=== PATIENT | male | born 1970 | race Caucasian/White ===

== ENCOUNTER → 2018-01-22 | Outpatient (CLI) | payer OTHER ==
[2018-01-22 09:58] LABS: ALANINE AMINOTRANSFERASE 38 U/L (21-72); ALBUMIN 4.1 g/dL (3.5-5.0); ALKALINE PHOSPHATASE 106 U/L (38-126); ANION GAP 10 (5-19); ASPARTATE AMINO TRANSFERASE 18 U/L (17-59); BILIRUBIN,DIRECT 0.3 mg/dL (0.0-0.4); BILIRUBIN,TOTAL 0.7 mg/dL (0.2-1.3); BLOOD UREA NITROGEN 23 mg/dL (7-20); CALCIUM 9.4 mg/dL (8.4-10.2); CARBON DIOXIDE 28 mmol/L (22-30); CHLORIDE 104 mmol/L (98-107); CHOLESTEROL 177.88 mg/dL (0-200); GLUCOSE 169 mg/dL (75-110); POTASSIUM 4.7 mmol/L (3.6-5.0); SODIUM 142.3 mmol/L (137-145); TRIGLYCERIDES 203 mg/dL (<150)
[2018-01-22 10:08] LABS: DIRECT LDL 109 mg/dL (<100)
[2018-01-22 10:12] LABS: VLDL CHOLESTEROL 40.6 mg/dL (10-31)
[2018-01-22 10:13] LABS: FREE T3 3.99 pg/mL (2.77-5.27); FREE T4 (FREE THYROXINE) 0.85 ng/dL (0.78-2.19)
[2018-01-22 10:26] LABS: THYROID STIMULATING HORMONE 1.92 uIU/mL (0.47-4.68)
== END ==
LOC: CCC 08:46
DX: E11.9 Type 2 diabetes mellitus without complications (principal)
CPT/HCPCS: 36415; 80053; 80061; 83036; 84439; 84443; 84481

== ENCOUNTER 2018-06-22 13:27 | Emergency (ER) | payer SELFPAY ==
[2018-06-22] MEDS ORDERED: ASPIRIN 81 MG TABLET, CHEWABLE PO ONE (15:34)
--- NOTE | 2018-06-22 15:39 | ER Document Report ---
ED Medical Screen (RME) - General Chief Complaint: Palpitations Stated Complaint: CHEST PAIN Time Seen by Provider: 06/22/18 15:34 Mode of Arrival: Ambulatory Information source: Patient, [facility] Records Notes: 47-year-old male with anxiety, bipolar, chronic palpitations presents with complaint of heart palpitations and jaw pain. Palpitations have been ongoing for 1 week with worsening over the last day. Patient associated jaw pain began yesterday. Patient reports a stress test and tilt table test performed 3 years ago in [place] which were normal. Reports worsening of sensation after eating certain foods. I have greeted and performed a rapid initial assessment of this patient. A comprehensive ED assessment and evaluation of the patient, analysis of test results and completion of medical decision making process we will be contacted by additional ED providers. PHYSICAL EXAMINATION: Vital signs reviewed-tachycardic, afebrile GENERAL: Well-appearing, well-nourished and in no acute distress. LUNGS: No respiratory distress Musculoskeletal: Normal range of motion NEUROLOGICAL: Normal speech, normal gait. PSYCH: Normal mood, normal affect. SKIN: Warm, Dry, normal turgor, no rashes or lesions noted. TRAVEL OUTSIDE OF THE [place] IN LAST 30 DAYS: No - HPI Onset: Other Onset/Duration: Intermittent, Persistent Quality of pain: Achy - Achy jaw pain Severity: Mild Associated Symptoms: denies: Diarrhea, Nausea, Shortness of breath Exacerbated by: Food Relieved by: Denies Similar symptoms previously: Yes Recently seen / treated by doctor: No - Related Data Smoking: Cigarettes Frequency of alcohol use: None Drug Abuse: None Allergies/Adverse Reactions: No Known Allergies Allergy (Unverified 06/22/18 13:29) Past Medical History Renal/ Medical History: Denies: Hx Peritoneal Dialysis Physical Exam - Vital signs Vitals: Temp Pulse Resp BP Pulse Ox 98.9 F 125 H 16 154/85 H 97 06/22/18 13:32 06/22/18 13:32 06/22/18 13:32 06/22/18 13:32 06/22/18 13:32 Course - Vital Signs Vital signs: Temp Pulse Resp BP Pulse Ox 98.9 F 125 H 16 154/85 H 97 06/22/18 13:32 06/22/18 13:32 06/22/18 13:32 06/22/18 13:32 06/22/18 13:32 Doctor's Discharge - Discharge Referrals: [facility] [Primary Care Provider] - Follow up as needed
[2018-06-22 16:13] LABS: ABSOLUTE BASOPHILS # (AUTO) 0.1 10^3/uL (0.0-0.2); ABSOLUTE LYMPHOCYTES (AUTO) 2.2 10^3/uL (0.5-4.7); ABSOLUTE MONOCYTES (AUTO) 0.6 10^3/uL (0.1-1.4); ABSOLUTE NEUT (AUTO) 5.3 10^3/uL (1.7-8.2); BASOPHILS % (AUTO) 0.6 % (0-2); EOSINOPHILS % (AUTO) 0.5 % (0-6); HEMATOCRIT 40.6 % (37.9-51.0); HEMOGLOBIN 14.5 g/dL (13.5-17.0); LYMPHOCYTES % (AUTO) 26.9 % (13-45); MEAN CORPUSCULAR HEMOGLOBIN 30.9 pg (27.0-33.4); MEAN CORPUSCULAR HGB CONC 35.7 g/dL (32.0-36.0); MEAN CORPUSCULAR VOLUME 87 fl (80-97); MONOCYTES % (AUTO) 7.3 % (3-13); PLATELET COUNT 201 10^3/uL (150-450); RED BLOOD COUNT 4.69 10^6/uL (4.35-5.55); RED CELL DISTRIBUTION WIDTH 12.9 % (11.5-14.0); SEGMENTED NEUTROPHILS % (AUTO) 64.7 % (42-78); TOTAL CELLS COUNTED % (AUTO) 100 %; WHITE BLOOD COUNT 8.3 10^3/uL (4.0-10.5)
--- NOTE | 2018-06-22 16:33 | RADIOLOGY REPORT (SQ) ---
EXAM DESCRIPTION: CHEST 2 VIEWS COMPLETED DATE/TIME: 06/22/2018 4:19 pm REASON FOR STUDY: Palpitations COMPARISON: None. EXAM PARAMETERS: NUMBER OF VIEWS: two views TECHNIQUE: Digital Frontal and Lateral radiographic views of the chest acquired. RADIATION DOSE: NA LIMITATIONS: none FINDINGS: LUNGS AND PLEURA: No opacities, masses or pneumothorax. No pleural effusion. MEDIASTINUM AND HILAR STRUCTURES: No masses or contour abnormalities. HEART AND VASCULAR STRUCTURES: Heart normal size. No evidence for failure. BONES: No acute findings. HARDWARE: Clips right upper quadrant post cholecystectomy OTHER: No other significant finding. IMPRESSION: NO ACUTE RADIOGRAPHIC FINDING IN THE CHEST. TECHNICAL DOCUMENTATION: JOB ID: [id number] [employer]- All Rights Reserved Reading location - IP/workstation name: [email or web address]
[2018-06-22 16:37] LABS: ALANINE AMINOTRANSFERASE 32 U/L (21-72); ALBUMIN 4.4 g/dL (3.5-5.0); ALKALINE PHOSPHATASE 88 U/L (38-126); ANION GAP 7 (5-19); ASPARTATE AMINO TRANSFERASE 31 U/L (17-59); BILIRUBIN,DIRECT 0.4 mg/dL (0.0-0.4); BILIRUBIN,TOTAL 0.7 mg/dL (0.2-1.3); BLOOD UREA NITROGEN 19 mg/dL (7-20); CALCIUM 9.3 mg/dL (8.4-10.2); CARBON DIOXIDE 30 mmol/L (22-30); CHLORIDE 103 mmol/L (98-107); CREATINE KINASE 83 U/L (55-170); GLUCOSE 253 mg/dL (75-110); POTASSIUM 4.7 mmol/L (3.6-5.0); SODIUM 139.6 mmol/L (137-145); TOTAL PROTEIN 7.5 g/dL (6.3-8.2)
[2018-06-22 16:48] LABS: CREATINE KINASE MB 0.85 ng/mL (<4.55); TROPONIN I < 0.012 ng/mL
[2018-06-22 18:50] LABS: APPEARANCE,URINE SLIGHTLY-CLOUDY; BILIRUBIN,URINE NEGATIVE (NEGATIVE); COLOR,URINE YELLOW; GLUCOSE, URINE 150 mg/dL (NEGATIVE); KETONES,URINE TRACE mg/dL (NEGATIVE); LEUKOCYTE ESTERASE,URINE NEGATIVE (NEGATIVE); NITRITE,URINE NEGATIVE (NEGATIVE); PROTEIN,URINE NEGATIVE (NEGATIVE); URINE SPECIFIC GRAVITY 1.026
--- NOTE | 2018-06-22 18:56 | EKG REPORT ---
SEVERITY:- OTHERWISE NORMAL ECG - SINUS TACHYCARDIA : Confirmed by: Jamarcus Davis MD 22-Jun-2018 18:55:43
[2018-06-22] MEDS ORDERED: HYDROXYZINE PAMOATE 25 MG CAPSULE PO ONE (20:57)
--- NOTE | 2018-06-22 21:01 | ER Document Report ---
ED General - General Chief Complaint: Palpitations Stated Complaint: CHEST PAIN Time Seen by Provider: 06/22/18 15:34 Mode of Arrival: Ambulatory TRAVEL OUTSIDE OF THE [place] IN LAST 30 DAYS: No - HPI Patient complains to provider of: Palpitations Notes: Patient coming in for evaluation of palpitations. Patient was evaluated by doctor and RME note is provided below 47-year-old male with anxiety, bipolar, chronic palpitations presents with complaint of heart palpitations and jaw pain. Palpitations have been ongoing for 1 week with worsening over the last day. Patient associated jaw pain began yesterday. Patient reports a stress test and tilt table test performed 3 years ago in [place] which were normal. Reports worsening of sensation after eating certain foods. Upon my evaluation patient states palpitations and jaw pain ongoing since yesterday. Patient states dropping started whenever he open his jaw very wide and yawning. Patient denies any trauma. Patient states that he was having palpitations have intermittent palpitations ongoing for a long time patient states negative cardiac workups in the past. Patient states he does have underlying anxiety and was on medication in the past for anxiety however at this time does not have any insurance and also does not have any medical care therefore is not taking any medications. Patient also associates palpitations with certain foods such as eating at a pizza restaurant however states no issues eating similar food at home. Patient denies ever having EGD or colonoscopy. Patient otherwise resting healthy upon my evaluation. - Related Data Allergies/Adverse Reactions: No Known Allergies Allergy (Verified 06/22/18 18:34) Past Medical History - General Information source: Patient, [facility] Records - Social History Smoking Status: Current Every Day Smoker Frequency of alcohol use: None Drug Abuse: None Family History: Reviewed & Not Pertinent Patient has suicidal ideation: No Patient has homicidal ideation: No Renal/ Medical History: Denies: Hx Peritoneal Dialysis Review of Systems - Review of Systems Constitutional: No symptoms reported EENT: No symptoms reported Cardiovascular: Palpitations Respiratory: No symptoms reported Gastrointestinal: No symptoms reported Genitourinary: No symptoms reported Male Genitourinary: No symptoms reported Musculoskeletal: No symptoms reported Skin: No symptoms reported Hematologic/Lymphatic: No symptoms reported Neurological/Psychological: No symptoms reported -: Yes All other systems reviewed and negative Physical Exam - Vital signs Vitals: Temp Pulse Resp BP Pulse Ox 98.9 F 125 H 16 154/85 H 97 12/17/18 13:32 06/22/18 13:32 06/22/18 13:32 06/22/18 13:32 06/22/18 13:32 Interpretation: Normal - General General appearance: Appears well, Alert - HEENT Head: Normocephalic, Atraumatic Eyes: Normal Pupils: PERRL - Respiratory Respiratory status: No respiratory distress Chest status: Nontender Breath sounds: Normal Chest palpation: Normal - Cardiovascular Rhythm: Regular Heart sounds: Normal auscultation Murmur: No - Abdominal Inspection: Normal Distension: No distension Bowel sounds: Normal Tenderness: Nontender Organomegaly: No organomegaly - Back Back: Normal, Nontender - Extremities General upper extremity: Normal inspection, Nontender, Normal color, Normal ROM , Normal temperature General lower extremity: Normal inspection, Nontender, Normal color, Normal ROM , Normal temperature, Normal weight bearing. No: Juan's sign - Neurological Neuro grossly intact: Yes Cognition: Normal Orientation: AAOx4 [place] Coma Scale Eye Opening: Spontaneous April Coma Scale Verbal: Oriented April Coma Scale Motor: Obeys Commands April Coma Scale Total: 15 Speech: Normal Motor strength normal: LUE, RUE, LLE, RLE Sensory: Normal - Psychological Associated symptoms: Normal affect, Normal mood - Skin Skin Temperature: Warm Skin Moisture: Dry Skin Color: Normal Course - Re-evaluation Re-evalutation: 06/22/18 23:54 The patient has palpitations as the patient's chest pain is not suggestive of pulmonary embolus, cardiac ischemia, aortic dissection, or other serious etiology. Given the extremely low risk of these diagnoses further testing and evaluation for these possibilities does not appear to be indicated at this time. The patient has been instructed to return if the symptoms worsen or change in any way. More likely etiology of patient's issues possibly anxiety related. Did recommend patient follow-up with a talend developer. Also recommend start the patient on a low dose of Vistaril. Patient stated understanding was grateful for his care and agrees with plan patient was discharged home. - Vital Signs Vital signs: Temp Pulse Resp BP Pulse Ox 98.6 F 125 H 20 124/79 97 06/22/18 21:01 06/22/18 13:32 06/22/18 21:01 06/22/18 21:01 06/22/18 21:01 - Laboratory Result Diagrams: 06/22/18 16:04 06/22/18 16:04 Laboratory results interpreted by me: 06/22/18 06/22/18 06/22/18 16:04 16:04 18:30 Glucose 253 H Hemoglobin A1c % 7.7 H Urine Glucose (UA) 150 H Urine Ketones TRACE H Urine Urobilinogen 2.0 H Discharge - Discharge Clinical Impression: Palpitations Condition: Good Disposition: HOME, SELF-CARE Instructions: Anxiety ([facility]), Palpitations (Irregular or Rapid Heartrate) ([facility]) Additional Instructions: Your evaluation today does not show any signs of critical pathology no signs of blood clots infection no signs of cardiac ischemia. Some of your palpitations may be related to possible underlying anxiety. I recommend taking the Vistaril as prescribed. I would recommend following up with your primary care physician and talend developer listed Dr. Jarrett. Return to ER symptoms worsen I would avoid stimulants such as coffee caffeine in excess Prescriptions: Hydroxyzine Pamoate [Vistaril 25 mg Capsule] 25 mg PO QHS #30 capsule Forms: Return to Work Referrals: [facility] [Primary Care Provider] - Follow up in 3-5 days STEPHANE JARRETT MD [ACTIVE STAFF] - Follow up as needed
[2018-06-22 21:20] VITALS: BP 124/79
== END 2018-06-22 21:20 | disposition home or self-care (01) ==
LOC: ER 13:27
DX: R00.2 Palpitations (principal); R68.84 Jaw pain; R07.9 Chest pain, unspecified; F17.200 Nicotine dependence, unspecified, uncomplicated
CPT/HCPCS: 36415; 71046; 80053; 81001; 82550; 82553; 83036; 83735; 84484; 85025; 85379; 93005; 93010; 99285

== ENCOUNTER 2018-07-25 18:22 | Emergency (ER) | payer SELFPAY ==
--- NOTE | 2018-07-25 19:11 | ER Document Report ---
ED Medical Screen (RME) - General Chief Complaint: Dizziness Stated Complaint: psych Time Seen by Provider: 07/25/18 19:06 Notes: Patient says he is thinking about suicide. He went to work today and got a text message from his fiance saying that she was breaking it off with him. All of his stuff that was at her house was piled outside of the house and he has now retrieved it. He has no place to go, no fianc, and does not have any money. 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 He said he contemplated taking a couple of steps into the cater[place] of traffic to commit suicide. Patient has a history of bipolar disorder, anxiety, and panic attacks. Non- insulin diabetic. TRAVEL OUTSIDE OF THE [place] IN LAST 30 DAYS: No - Related Data Allergies/Adverse Reactions: No Known Allergies Allergy (Verified 07/25/18 18:24) Past Medical History - Social History Chew tobacco use (# tins/day): No Frequency of alcohol use: None Drug Abuse: None Endocrine Medical History: Reports: Hx Diabetes Mellitus Type 2 Renal/ Medical History: Denies: Hx Peritoneal Dialysis Psychiatric Medical History: Reports: Hx Bipolar Disorder Past Surgical History: Reports: Hx Cholecystectomy Physical Exam - Vital signs Vitals: Temp Pulse Resp BP Pulse Ox 98.7 F 132 H 20 126/80 H 96 07/25/18 18:30 07/25/18 18:30 07/25/18 18:30 07/25/18 18:30 07/25/18 18:30 Course - Vital Signs Vital signs: Temp Pulse Resp BP Pulse Ox 98.7 F 132 H 20 126/80 H 96 07/25/18 18:30 07/25/18 18:30 07/25/18 18:30 07/25/18 18:30 07/25/18 18:30 Doctor's Discharge - Discharge Referrals: [facility] [Primary Care Provider] - Follow up as needed
[2018-07-25 19:41] LABS: ABSOLUTE BASOPHILS # (AUTO) 0.1 10^3/uL (0.0-0.2); ABSOLUTE LYMPHOCYTES (AUTO) 1.8 10^3/uL (0.5-4.7); ABSOLUTE NEUT (AUTO) 13.2 10^3/uL (1.7-8.2); BASOPHILS % (AUTO) 0.4 % (0-2); EOSINOPHILS % (AUTO) 0.2 % (0-6); HEMATOCRIT 44.1 % (37.9-51.0); HEMOGLOBIN 15.7 g/dL (13.5-17.0); MEAN CORPUSCULAR HEMOGLOBIN 31.2 pg (27.0-33.4); MEAN CORPUSCULAR HGB CONC 35.6 g/dL (32.0-36.0); MEAN CORPUSCULAR VOLUME 88 fl (80-97); MONOCYTES % (AUTO) 6.2 % (3-13); PLATELET COUNT 224 10^3/uL (150-450); RED BLOOD COUNT 5.02 10^6/uL (4.35-5.55); RED CELL DISTRIBUTION WIDTH 13.5 % (11.5-14.0); SEGMENTED NEUTROPHILS % (AUTO) 82.2 % (42-78); TOTAL CELLS COUNTED % (AUTO) 100 %; WHITE BLOOD COUNT 16.1 10^3/uL (4.0-10.5)
[2018-07-25 19:45] LABS: APPEARANCE,URINE SLIGHTLY-CLOUDY; BILIRUBIN,URINE NEGATIVE (NEGATIVE); COLOR,URINE DARK YELLOW; GLUCOSE, URINE NEGATIVE (NEGATIVE); KETONES,URINE TRACE mg/dL (NEGATIVE); LEUKOCYTE ESTERASE,URINE TRACE (NEGATIVE); NITRITE,URINE NEGATIVE (NEGATIVE); PROTEIN,URINE 30 mg/dL (NEGATIVE); URINE SPECIFIC GRAVITY 1.019; UROBILINOGEN,URINE NEGATIVE mg/dL (<2.0)
[2018-07-25 19:55] LABS: ALANINE AMINOTRANSFERASE 47 U/L (21-72); ALBUMIN 5.3 g/dL (3.5-5.0); ALKALINE PHOSPHATASE 94 U/L (38-126); ANION GAP 12 (5-19); ASPARTATE AMINO TRANSFERASE 29 U/L (17-59); BILIRUBIN,DIRECT 0.3 mg/dL (0.0-0.4); BILIRUBIN,TOTAL 1.1 mg/dL (0.2-1.3); BLOOD UREA NITROGEN 19 mg/dL (7-20); CALCIUM 10.3 mg/dL (8.4-10.2); CARBON DIOXIDE 29 mmol/L (22-30); CHLORIDE 103 mmol/L (98-107); GLUCOSE 144 mg/dL (75-110); POTASSIUM 4.2 mmol/L (3.6-5.0); SODIUM 143.8 mmol/L (137-145); TOTAL PROTEIN 8.4 g/dL (6.3-8.2)
[2018-07-25 19:56] LABS: ACETAMINOPHEN < 10 ug/mL (10-30); ALCOHOL < 10 mg/dL (NONE DETECTED); SALICYLATE < 1.0 mg/dL (2.0-20.0)
[2018-07-25 20:01] LABS: URINE AMPHETAMINES SCREEN NEGATIVE; URINE BARBITURATES SCREEN NEGATIVE; URINE BENZODIAZEPINES SCREEN NEGATIVE; URINE COCAINE SCREEN NEGATIVE; URINE MARIJUANA (THC) SCREEN NEGATIVE; URINE METHADONE SCREEN NEGATIVE; URINE PHENCYCLIDINE SCREEN NEGATIVE
[2018-07-25 20:20] LABS: FREE T4 (FREE THYROXINE) 1.14 ng/dL (0.78-2.19)
[2018-07-25 20:34] LABS: THYROID STIMULATING HORMONE 1.67 uIU/mL (0.47-4.68)
[2018-07-25] MEDS ORDERED: METFORMIN HCL 500 MG TABLET PO ONE (20:38)
--- NOTE | 2018-07-25 21:05 | ER Document Report ---
Addendum entered and electronically signed by SUKHI GOSS LPC 07/26/18 09:35: Discharge - Discharge Clinical Impression: Psychosocial stressors, Suicidal ideation Condition: Stable Disposition: HOME, SELF-CARE Additional Instructions: You have been evaluated and assessed by both medical and behavioral health staff during your emergency department visit. You have been cleared of acute medical and psychiatric needs. It is felt psychosocial stresses (relationship distress with intimate partner, homelessness, financial strain, and lack of employment) and not having your diabetic medication/food resulted in crisis. You stated you have already been working with [employer] in obtaining a one way bus ticket to [place] (where you previously resided just over a year ago) or [place] (where you said your cousin resides). You will be linked with [facility] at discharge from the emergency department where they can continue to assist with social needs. 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 While symptoms may be vague, they often include disturbance of sleep, fatigue, loss of appetite, and general loss of interest in life. While depression may be a side effect of drugs, or a reaction to a major change in your life, many cases have no known cause. If depression is acute, and related to a major loss in your life, you can expect it to clear completely with time. If you have been depressed a long time, are prone to repeated bouts of depression or low mood, or have been thinking of suicide, get help. Depression can be treated with anti-depressant medication and counselling. Long-term depression will often take a few weeks to clear, even with appropriate medication. Follow-up care is important. SUICIDAL IDEATION: Suicidal ideation is a common medical term for thoughts about suicide, which may be as detailed as a formulated plan, without the suicidal act itself. Although most people who undergo suicidal ideation do not commit suicide, some go on to make suicide attempts. The range of suicidal ideation varies greatly from fleeting to detailed planning, role playing, and unsuccessful attempts. While thoughts about suicide are common, most people do not carry out serious actions to commit suicide. Based upon your evaluation and discussion with you, we do not believe you are currently at risk to act upon your thoughts of suicide. You have agreed to return to the Emergency Department, at any time, if you feel inclined to act upon your suicidal thoughts. FOLLOW-UP CARE: You are being linked with [facility] since they have been working with you the past few days. They can assist with getting you the one way bus ticket to [place] or [place]. You have been provided with the [facility] information for possible temporary living. While you remain in this area you should continue follow up with [facility] for medical needs and re-establish services with [facility] for behavioral health. If you experience worsening or a significant change in your symptoms, notify the physician immediately or return to the Emergency Department at any time for re- evaluation. Referrals: [facility] [Primary [facility] Provider] - Follow up as needed [facility] [Provider Group] - Follow up as needed [facility] [Outside] - 07/26/18 Original Note: ED Psych Disorder / Suicide - General TRAVEL OUTSIDE OF THE U.S. IN LAST 30 DAYS: No <CLAYTON RAMIREZ - Last Filed: 07/26/18 06:24> <SUKHI GOSS - Last Filed: 07/26/18 09:10> <VALENTINO STUBBS - Last Filed: 07/26/18 10:00> - General Chief Complaint: Psych Problem Stated Complaint: psych Time Seen by Provider: 07/25/18 19:06 Notes: E providers note: Patient says he is thinking about suicide. He went to work today and got a text message from his fiance saying that she was breaking it off with him. All of his stuff that was at her house was piled outside of the house and he has now retrieved it. He has no place to go, no fianc, and does not have any money. 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 He said he contemplated taking a couple of steps into the caterina of traffic to commit suicide. Patient has a history of bipolar disorder, anxiety, and panic attacks. Non- insulin diabetic. My HPI: Upon my examination of the patient he states that he moved to this area about a year ago. Moved away from [place] for his fiance. States he left his job he left his house he left all of his friends for this fianc and is very upset at this point in time that his fiance told him that "it was over." When asked directly if the patient wanted to commit suicide he states "I could not say for sure." Discussed what was said in triage and documented by the RME provider. Patient states "oh yeah does not everybody think about walking into traffic at one time or another?" Patient is currently denying all complaints. Denying lightheadedness, dizziness, headache, abdominal pain, nausea, vomiting, diarrhea. Patient is requesting to smoke a cigarette. Past medical history: Bipolar, anxiety, diabetes Medications: Metformin, Januvia Allergies: None Patient admits to cigarette smoking, denies illicit drug use, denies EtOH use (CLAYTON RAMIREZ) - Related Data Allergies/Adverse Reactions: No Known Allergies Allergy (Verified 07/25/18 18:24) Past Medical History - General Information source: Patient - Social History Smoking Status: Current Every Day Smoker Chew tobacco use (# tins/day): No Frequency of alcohol use: None Drug Abuse: None Family History: Reviewed & Not Pertinent Patient has suicidal ideation: Yes - doesnt feel safe Patient has homicidal ideation: No Endocrine Medical History: Reports: Hx Diabetes Mellitus Type 2 Renal/ Medical History: Denies: Hx Peritoneal Dialysis Psychiatric Medical History: Reports: Hx Bipolar Disorder Past Surgical History: Reports: Hx Cholecystectomy <CLAYTON RAMIREZ - Last Filed: 07/26/18 06:24> Review of Systems - Review of Systems Constitutional: No symptoms reported EENT: No symptoms reported Cardiovascular: No symptoms reported Respiratory: No symptoms reported Gastrointestinal: No symptoms reported Genitourinary: No symptoms reported Male Genitourinary: No symptoms reported Musculoskeletal: No symptoms reported Skin: No symptoms reported Hematologic/Lymphatic: No symptoms reported Neurological/Psychological: See HPI <CLAYTON RAMIREZ - Last Filed: 07/26/18 06:24> Physical Exam <CLAYTON RAMIREZ - Last Filed: 07/26/18 06:24> - Vital signs Vitals: Temp Pulse Resp BP Pulse Ox 98.7 F 132 H 20 126/80 H 96 07/25/18 18:30 07/25/18 18:30 07/25/18 18:30 07/25/18 18:30 07/25/18 18:30 - Notes Notes: GENERAL: Alert, interacts well. No acute distress. HEAD: Normocephalic, atraumatic. EYES: Pupils equal, round, and reactive to light. Extraocular movements intact. ENT: Oral mucosa moist, tongue midline. NECK: Full range of motion. Supple. Trachea midline. LUNGS: Clear to auscultation bilaterally, no wheezes, rales, or rhonchi. No re spiratory distress. HEART: Regular rate and rhythm. No murmur ABDOMEN: Soft, non-tender. Non-distended. Bowel sounds present in all 4 quadrants. EXTREMITIES: Moves all 4 extremities spontaneously. No edema, normal radial and dorsalis pedis pulses bilaterally. No cyanosis. BACK: no cervical, thoracic, lumbar midline tenderness. No saddle anesthesia, normal distal neurovascular exam. NEUROLOGICAL: Alert and oriented x3. Normal speech. cranial nerves II through XII grossly intact PSYCH: Normal affect, normal mood. SKIN: Warm, dry, normal turgor. No rashes or lesions noted. (CLAYTON RAMIREZ) Course - Laboratory Result Diagrams: 07/25/18 19:25 07/25/18 19:25 <CLAYTON RAMIREZ - Last Filed: 07/26/18 06:24> - Laboratory Result Diagrams: 07/25/18 19:25 07/25/18 19:25 <VALENTINO STUBBS - Last Filed: 07/26/18 10:00> - Re-evaluation Re-evalutation: 07/25/18 21:01 Patient's labs do show leukocytosis of 16.1, no signs of anemia, no sign of electrolyte abnormalities, no signs of urinary tract infection. Patient's urine drug screen is negative. Patient's EKG shows a heart rate of 111, and his tachycardia with a QTC of 413, no ST segment elevations or depressions noted. Patient's initial complaints documented by nursing staff states that he was having stomach pains. Patient is denying any abdominal pain at this time. Patient does ask if he can smoke a cigarette. I discussed he was not able to leave the emergency department but I would be happy to give him a NicoDerm patch. Patient is refusing NicoDerm patch at this time. At this time patient is medically cleared for psych evaluation. IVC paperwork has been filled out by myself, signed by my attending Dr. Rivera. 07/26/18 06:24 Patient was without complaints overnight. Sleeping comfortably. Patient care and report was transferred to [facility] for continued care and awaiting psych evaluation. (CLAYTON RAMIREZ) - Vital Signs Vital signs: Temp Pulse Resp BP Pulse Ox 98.3 F 85 20 133/73 H 100 07/26/18 04:55 07/26/18 04:55 07/26/18 04:55 07/26/18 04:55 07/26/18 04:55 - Laboratory Laboratory results interpreted by me: 07/25/18 07/25/18 07/25/18 19:25 19:25 19:25 WBC 16.1 H Seg Neutrophils % 82.2 H Lymphocytes % 11.0 L Absolute Neutrophils 13.2 H Creatinine 1.31 H Est GFR (Non-Af Amer) 58 L Glucose 144 H Calcium 10.3 H Total Protein 8.4 H Albumin 5.3 H Urine Protein 30 H Urine Ketones TRACE H Ur Leukocyte Esterase TRACE H Salicylates < 1.0 L Acetaminophen < 10 L Discharge <CLAYTON RAMIREZ - Last Filed: 07/26/18 06:24> <SUKHI GOSS - Last Filed: 07/26/18 09:10> <VALENTINO STUBBS - Last Filed: 07/26/18 10:00> - Discharge Clinical Impression: Psychosocial stressors, Suicidal ideation Condition: Stable Disposition: HOME, SELF-CARE Additional Instructions: You have been evaluated and assessed by both medical and behavioral health staff during your emergency department visit. You have been cleared of acute medical and psychiatric needs. It is felt psychosocial stresses (relationship distress with intimate partner, homelessness, financial strain, and lack of employment) and not having your diabetic medication/food resulted in crisis. You stated you have already been working with [facility] in obtaining a one way bus ticket to [place] (where you previously resided just over a year ago) or [place] (where you said your cousin resides). You will be linked with [facility] at discharge from the emergency department where they can continue to assist with social needs. 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 While symptoms may be vague, they often include disturbance of sleep, fatigue, loss of appetite, and general loss of interest in life. While depression may be a side effect of drugs, or a reaction to a major change in your life, many cases have no known cause. If depression is acute, and related to a major loss in your life, you can expect it to clear completely with time. If you have been depressed a long time, are prone to repeated bouts of depression or low mood, or have been thinking of suicide, get help. Depression can be treated with anti-depressant medication and counselling. Long-term depression will often take a few weeks to clear, even with appropriate medication. Follow-up care is important. SUICIDAL IDEATION: Suicidal ideation is a common medical term for thoughts about suicide, which may be as detailed as a formulated plan, without the suicidal act itself. Although most people who undergo suicidal ideation do not commit suicide, some go on to make suicide attempts. The range of suicidal ideation varies greatly from fleeting to detailed planning, role playing, and unsuccessful attempts. While thoughts about suicide are common, most people do not carry out serious actions to commit suicide. Based upon your evaluation and discussion with you, we do not believe you are currently at risk to act upon your thoughts of suicide. You have agreed to return to the Emergency Department, at any time, if you feel inclined to act upon your suicidal thoughts. FOLLOW-UP CARE: You are being linked with [facility] crisis since they have been working with you the past few days. They can assist with getting you the one way bus ticket to [place] or [place]. You have been provided with the [facility] information for possible temporary living. While you remain in this area you should continue follow up with [facility] for medical needs and re-establish services with [facility] for behavioral health. If you experience worsening or a significant change in your symptoms, notify the physician immediately or return to the Emergency Department at any time for re-evaluation. Referrals: [facility] [Provider Group] - Follow up as needed [facility] [Outside] - 07/26/18 [facility] [[facility] - Follow up as needed
[2018-07-26] MEDS ORDERED: METFORMIN HCL 500 MG TABLET PO ONE (09:59)
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
[2018-07-26 12:12] VITALS: BP 117/80
--- NOTE | 2018-07-26 23:50 | EKG REPORT ---
SEVERITY:- OTHERWISE NORMAL ECG - SINUS TACHYCARDIA : Confirmed by: Td Fernandez 26-Jul-2018 23:48:18
== END 2018-07-26 12:13 | disposition home or self-care (01) ==
LOC: ER 18:22
DX: R45.851 Suicidal ideations (principal); F31.9 Bipolar disorder, unspecified; F41.9 Anxiety disorder, unspecified; D72.829 Elevated white blood cell count, unspecified; R00.0 Tachycardia, unspecified; Z63.0 Problems in relationship with spouse or partner; Z59.0 Homelessness; Z59.8 Other problems related to housing and economic circumstances; E11.9 Type 2 diabetes mellitus without complications; Z79.84 Long term (current) use of oral hypoglycemic drugs; F17.210 Nicotine dependence, cigarettes, uncomplicated
CPT/HCPCS: 36415; 80053; 80307; 81001; 84439; 84443; 85025; 93005; 93010; 99285

== ENCOUNTER 2018-09-30 12:54 | Emergency (ER) | payer SELFPAY ==
[2018-09-30 12:59] VITALS: BP 180/96
== END 2018-09-30 14:30 | disposition left against medical advice (07) ==
LOC: ER 12:54
DX: Z53.21 Procedure and treatment not carried out due to patient leaving prior to being seen by health care provider (principal)

== ENCOUNTER → 2018-10-08 | Outpatient (CLI) | payer OTHER ==
[2018-10-08 08:49] LABS: ABSOLUTE BASOPHILS # (AUTO) 0.1 10^3/uL (0.0-0.2); ABSOLUTE EOSINOPHILS # (AUTO) 0.2 10^3/uL (0.0-0.6); ABSOLUTE LYMPHOCYTES (AUTO) 1.7 10^3/uL (0.5-4.7); ABSOLUTE MONOCYTES (AUTO) 0.6 10^3/uL (0.1-1.4); ABSOLUTE NEUT (AUTO) 4.2 10^3/uL (1.7-8.2); BASOPHILS % (AUTO) 0.9 % (0-2); EOSINOPHILS % (AUTO) 2.9 % (0-6); HEMATOCRIT 40.4 % (37.9-51.0); HEMOGLOBIN 14.4 g/dL (13.5-17.0); MEAN CORPUSCULAR HEMOGLOBIN 31.8 pg (27.0-33.4); MEAN CORPUSCULAR HGB CONC 35.7 g/dL (32.0-36.0); MEAN CORPUSCULAR VOLUME 89 fl (80-97); MONOCYTES % (AUTO) 8.3 % (3-13); PLATELET COUNT 202 10^3/uL (150-450); RED BLOOD COUNT 4.53 10^6/uL (4.35-5.55); RED CELL DISTRIBUTION WIDTH 13.6 % (11.5-14.0); SEGMENTED NEUTROPHILS % (AUTO) 62.9 % (42-78); TOTAL CELLS COUNTED % (AUTO) 100 %; WHITE BLOOD COUNT 6.7 10^3/uL (4.0-10.5)
[2018-10-08 09:43] LABS: ALANINE AMINOTRANSFERASE 27 U/L (21-72); ALBUMIN 4.1 g/dL (3.5-5.0); ALKALINE PHOSPHATASE 146 U/L (38-126); ANION GAP 7 (5-19); ASPARTATE AMINO TRANSFERASE 20 U/L (17-59); BILIRUBIN,DIRECT 0.3 mg/dL (0.0-0.4); BILIRUBIN,TOTAL 0.5 mg/dL (0.2-1.3); BLOOD UREA NITROGEN 20 mg/dL (7-20); CALCIUM 9.6 mg/dL (8.4-10.2); CARBON DIOXIDE 27 mmol/L (22-30); CHLORIDE 107 mmol/L (98-107); GLUCOSE 205 mg/dL (75-110); POTASSIUM 4.1 mmol/L (3.6-5.0); SODIUM 140.8 mmol/L (137-145); TOTAL PROTEIN 7.2 g/dL (6.3-8.2); TRIGLYCERIDES 209 mg/dL (<150)
[2018-10-08 09:54] LABS: DIRECT LDL 115 mg/dL (<100)
[2018-10-08 09:56] LABS: VLDL CHOLESTEROL 41.8 mg/dL (10-31)
== END ==
LOC: CCC 07:37
DX: E11.8 Type 2 diabetes mellitus with unspecified complications (principal)
CPT/HCPCS: 36415; 80053; 80061; 83036; 83735; 84443; 85025

== ENCOUNTER 2019-03-15 15:24 | Emergency (ER) | payer SELFPAY ==
--- NOTE | 2019-03-15 17:12 | ER Document Report ---
ED Medical Screen (RME) - General Chief Complaint: High Blood Pressure Stated Complaint: BLOOD PRESSURE ISSUE Time Seen by Provider: 03/15/19 17:09 Primary Care Provider: [facility] [Primary Care Provider] - Follow up as needed Mode of Arrival: Ambulatory Information source: Patient Notes: 48-year-old male presented to the ED today for elevated blood pressure and elevated sugar. He is a diabetic but does not have a history of high blood pressure. He states his blood pressure was one 160/110 at home. It is not that high now. He states his blood sugars usually run in the 200s and today it was 317. Patient states he has been dizzy lightheaded and headaches. Patient is alert oriented respirations regular and unlabored speaking in full sentences. I have greeted and performed a rapid initial assessment of this patient. A comprehensive ED assessment and evaluation of the patient, analysis of test results and completion of medical decision making process will be conducted by an additional ED providers. Blood pressure and TRAVEL OUTSIDE OF THE U.S. IN LAST 30 DAYS: No - Related Data Allergies/Adverse Reactions: No Known Allergies Allergy (Verified 03/15/19 15:24) Past Medical History Endocrine Medical History: Reports: Hx Diabetes Mellitus Type 2 Renal/ Medical History: Denies: Hx Peritoneal Dialysis Psychiatric Medical History: Reports: Hx Bipolar Disorder Past Surgical History: Reports: Hx Cholecystectomy Physical Exam - Vital signs Vitals: Temp Pulse Resp BP Pulse Ox 98.6 F 83 18 147/83 H 97 03/15/19 15:44 03/15/19 15:44 03/15/19 15:44 03/15/19 15:44 03/15/19 15:44 Course - Vital Signs Vital signs: Temp Pulse Resp BP Pulse Ox 98.6 F 83 18 147/83 H 97 03/15/19 15:44 03/15/19 15:44 03/15/19 15:44 03/15/19 15:44 03/15/19 15:44 Doctor's Discharge - Discharge Referrals: [facility] [Primary Care Provider] - Follow up as needed
--- NOTE | 2019-03-15 18:19 | RADIOLOGY REPORT (SQ) ---
EXAM DESCRIPTION: CHEST 2 VIEWS COMPLETED DATE/TIME: 03/15/2019 6:02 pm REASON FOR STUDY: dizziness COMPARISON: 06/22/2018 EXAM PARAMETERS: NUMBER OF VIEWS: two views TECHNIQUE: Digital Frontal and Lateral radiographic views of the chest acquired. RADIATION DOSE: NA LIMITATIONS: none FINDINGS: LUNGS AND PLEURA: No opacities, masses or pneumothorax. No pleural effusion. MEDIASTINUM AND HILAR STRUCTURES: No masses or contour abnormalities. HEART AND VASCULAR STRUCTURES: Heart normal size. No evidence for failure. BONES: No acute findings. HARDWARE: None in the chest. OTHER: No other significant finding. IMPRESSION: NO ACUTE RADIOGRAPHIC FINDING IN THE CHEST. TECHNICAL DOCUMENTATION: JOB ID: [id number] [employer]- All Rights Reserved Reading location - IP/workstation name: [email or web address]
[2019-03-15 18:28] LABS: APPEARANCE,URINE CLEAR; BILIRUBIN,URINE NEGATIVE (NEGATIVE); COLOR,URINE YELLOW; GLUCOSE, URINE >=500 mg/dL (NEGATIVE); KETONES,URINE NEGATIVE (NEGATIVE); LEUKOCYTE ESTERASE,URINE NEGATIVE (NEGATIVE); NITRITE,URINE NEGATIVE (NEGATIVE); PROTEIN,URINE NEGATIVE (NEGATIVE); URINE SPECIFIC GRAVITY 1.025
[2019-03-15 18:29] LABS: ABSOLUTE EOSINOPHILS # (AUTO) 0.2 10^3/uL (0.0-0.6); ABSOLUTE LYMPHOCYTES (AUTO) 2.3 10^3/uL (0.5-4.7); ABSOLUTE MONOCYTES (AUTO) 0.6 10^3/uL (0.1-1.4); ABSOLUTE NEUT (AUTO) 5.3 10^3/uL (1.7-8.2); BASOPHILS % (AUTO) 0.4 % (0-2); EOSINOPHILS % (AUTO) 1.9 % (0-6); HEMATOCRIT 41.1 % (37.9-51.0); HEMOGLOBIN 14.2 g/dL (13.5-17.0); LYMPHOCYTES % (AUTO) 27.3 % (13-45); MEAN CORPUSCULAR HEMOGLOBIN 30.6 pg (27.0-33.4); MEAN CORPUSCULAR HGB CONC 34.5 g/dL (32.0-36.0); MEAN CORPUSCULAR VOLUME 89 fl (80-97); MONOCYTES % (AUTO) 7.2 % (3-13); PLATELET COUNT 172 10^3/uL (150-450); RED BLOOD COUNT 4.63 10^6/uL (4.35-5.55); RED CELL DISTRIBUTION WIDTH 13.2 % (11.5-14.0); SEGMENTED NEUTROPHILS % (AUTO) 63.2 % (42-78); TOTAL CELLS COUNTED % (AUTO) 100 %; WHITE BLOOD COUNT 8.5 10^3/uL (4.0-10.5)
[2019-03-15 18:33] LABS: INTERNATIONAL RATION (INR) 1.12; PROTHROMBIN TIME 14.5 SEC (11.4-15.4)
[2019-03-15 18:34] LABS: PARTIAL THROMBOPLASTIN TIME 27.4 SEC (23.5-35.8)
[2019-03-15 18:49] LABS: ALBUMIN 4.3 g/dL (3.5-5.0); ALKALINE PHOSPHATASE 109 U/L (38-126); ANION GAP 10 (5-19); ASPARTATE AMINO TRANSFERASE 31 U/L (17-59); BILIRUBIN,DIRECT 0.2 mg/dL (0.0-0.4); BILIRUBIN,TOTAL 0.5 mg/dL (0.2-1.3); BLOOD UREA NITROGEN 15 mg/dL (7-20); CALCIUM 9.3 mg/dL (8.4-10.2); CARBON DIOXIDE 30 mmol/L (22-30); CHLORIDE 104 mmol/L (98-107); CREATINE KINASE 121 U/L (55-170); GLUCOSE 127 mg/dL (75-110); TOTAL PROTEIN 7.1 g/dL (6.3-8.2)
[2019-03-15 19:01] LABS: CREATINE KINASE MB 1.09 ng/mL (<4.55)
[2019-03-15 19:07] LABS: TROPONIN I < 0.012 ng/mL
[2019-03-15 21:07] VITALS: BP 136/86
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
--- NOTE | 2019-03-16 08:15 | EKG REPORT ---
SEVERITY:- NORMAL ECG - SINUS RHYTHM : Confirmed by: April Ac MD 16-Mar-2019 08:14:33
== END 2019-03-15 21:43 | disposition home or self-care (01) ==
LOC: ER 15:24
DX: I10 Essential (primary) hypertension (principal); R53.81 Other malaise; R42 Dizziness and giddiness; E11.39 Type 2 diabetes mellitus with other diabetic ophthalmic complication; F17.210 Nicotine dependence, cigarettes, uncomplicated; Z90.49 Acquired absence of other specified parts of digestive tract
CPT/HCPCS: 36415; 71046; 80053; 81001; 82550; 82553; 83690; 84484; 85025; 85610; 85730; 93005; 93010; 99284

== ENCOUNTER → 2019-04-01 | Outpatient (CLI) | payer OTHER ==
[2019-04-01 11:36] LABS: ABSOLUTE BASOPHILS # (AUTO) 0.1 10^3/uL (0.0-0.2); ABSOLUTE EOSINOPHILS # (AUTO) 0.2 10^3/uL (0.0-0.6); ABSOLUTE LYMPHOCYTES (AUTO) 2.1 10^3/uL (0.5-4.7); ABSOLUTE MONOCYTES (AUTO) 0.7 10^3/uL (0.1-1.4); ABSOLUTE NEUT (AUTO) 3.9 10^3/uL (1.7-8.2); EOSINOPHILS % (AUTO) 2.2 % (0-6); HEMATOCRIT 41.9 % (37.9-51.0); HEMOGLOBIN 14.7 g/dL (13.5-17.0); LYMPHOCYTES % (AUTO) 29.9 % (13-45); MEAN CORPUSCULAR HEMOGLOBIN 30.5 pg (27.0-33.4); MEAN CORPUSCULAR HGB CONC 35.1 g/dL (32.0-36.0); MEAN CORPUSCULAR VOLUME 87 fl (80-97); MONOCYTES % (AUTO) 9.9 % (3-13); PLATELET COUNT 183 10^3/uL (150-450); RED BLOOD COUNT 4.82 10^6/uL (4.35-5.55); RED CELL DISTRIBUTION WIDTH 13.2 % (11.5-14.0); TOTAL CELLS COUNTED % (AUTO) 100 %; WHITE BLOOD COUNT 6.9 10^3/uL (4.0-10.5)
[2019-04-01 12:03] LABS: ALBUMIN 4.3 g/dL (3.5-5.0); ALKALINE PHOSPHATASE 96 U/L (38-126); ANION GAP 10 (5-19); ASPARTATE AMINO TRANSFERASE 22 U/L (17-59); BILIRUBIN,DIRECT 0.2 mg/dL (0.0-0.4); BILIRUBIN,TOTAL 0.8 mg/dL (0.2-1.3); BLOOD UREA NITROGEN 20 mg/dL (7-20); CALCIUM 9.5 mg/dL (8.4-10.2); CARBON DIOXIDE 27 mmol/L (22-30); CHLORIDE 102 mmol/L (98-107); CHOLESTEROL 180.14 mg/dL (0-200); GLUCOSE 193 mg/dL (75-110); POTASSIUM 4.2 mmol/L (3.6-5.0); TOTAL PROTEIN 7.1 g/dL (6.3-8.2); TRIGLYCERIDES 103 mg/dL (<150)
[2019-04-01 12:13] LABS: DIRECT LDL 147 mg/dL (<100)
== END ==
LOC: CCC 10:41
DX: Z00.00 Encounter for general adult medical examination without abnormal findings (principal)
CPT/HCPCS: 36415; 80053; 80061; 83036; 84443; 85025

== ENCOUNTER → 2019-08-17 | Outpatient (CLI) | payer OTHER ==
[2019-08-17 09:03] LABS: ANION GAP 7 (5-19); BLOOD UREA NITROGEN 17 mg/dL (7-20); CALCIUM 9.3 mg/dL (8.4-10.2); CARBON DIOXIDE 28 mmol/L (22-30); CHLORIDE 106 mmol/L (98-107); GLUCOSE 117 mg/dL (75-110); POTASSIUM 4.1 mmol/L (3.6-5.0)
== END ==
LOC: CCC 07:53
DX: Z00.00 Encounter for general adult medical examination without abnormal findings (principal); E11.8 Type 2 diabetes mellitus with unspecified complications
CPT/HCPCS: 36415; 80048; 83036

== ENCOUNTER → 2019-10-22 | Outpatient (CLI) | payer OTHER ==
[2019-10-22 10:57] LABS: ABSOLUTE BASOPHILS # (AUTO) 0.1 10^3/uL (0.0-0.2); ABSOLUTE EOSINOPHILS # (AUTO) 0.2 10^3/uL (0.0-0.6); ABSOLUTE MONOCYTES (AUTO) 0.6 10^3/uL (0.1-1.4); ABSOLUTE NEUT (AUTO) 3.6 10^3/uL (1.7-8.2); BASOPHILS % (AUTO) 1.1 % (0-2); EOSINOPHILS % (AUTO) 2.8 % (0-6); HEMOGLOBIN 15.7 g/dL (13.5-17.0); LYMPHOCYTES % (AUTO) 30.7 % (13-45); MEAN CORPUSCULAR HEMOGLOBIN 30.9 pg (27.0-33.4); MEAN CORPUSCULAR HGB CONC 35.6 g/dL (32.0-36.0); MEAN CORPUSCULAR VOLUME 87 fl (80-97); MONOCYTES % (AUTO) 9.3 % (3-13); PLATELET COUNT 186 10^3/uL (150-450); RED BLOOD COUNT 5.07 10^6/uL (4.35-5.55); RED CELL DISTRIBUTION WIDTH 13.5 % (11.5-14.0); SEGMENTED NEUTROPHILS % (AUTO) 56.1 % (42-78); TOTAL CELLS COUNTED % (AUTO) 100 %; WHITE BLOOD COUNT 6.4 10^3/uL (4.0-10.5)
[2019-10-22 11:04] LABS: APPEARANCE,URINE CLEAR; BILIRUBIN,URINE NEGATIVE (NEGATIVE); COLOR,URINE YELLOW; GLUCOSE, URINE 50 mg/dL (NEGATIVE); KETONES,URINE NEGATIVE (NEGATIVE); LEUKOCYTE ESTERASE,URINE NEGATIVE (NEGATIVE); NITRITE,URINE NEGATIVE (NEGATIVE); PROTEIN,URINE NEGATIVE (NEGATIVE); URINE SPECIFIC GRAVITY 1.029
[2019-10-22 11:18] LABS: ALBUMIN 4.2 g/dL (3.5-5.0); ALKALINE PHOSPHATASE 107 U/L (38-126); ANION GAP 7 (5-19); ASPARTATE AMINO TRANSFERASE 19 U/L (17-59); BILIRUBIN,TOTAL 0.6 mg/dL (0.2-1.3); BLOOD UREA NITROGEN 22 mg/dL (7-20); CALCIUM 9.2 mg/dL (8.4-10.2); CARBON DIOXIDE 28 mmol/L (22-30); CHLORIDE 101 mmol/L (98-107); CHOLESTEROL 167.63 mg/dL (0-200); GLUCOSE 231 mg/dL (75-110); POTASSIUM 4.3 mmol/L (3.6-5.0); TOTAL PROTEIN 6.9 g/dL (6.3-8.2); TRIGLYCERIDES 215 mg/dL (<150); URIC ACID 4.5 mg/dL (3.5-8.5)
[2019-10-22 11:29] LABS: DIRECT LDL 116 mg/dL (<100)
[2019-10-23 05:37] LABS: CREATININE URINE 240.1 mg/dL (Not Estab.); MICROALBUMIN URINE 5.8 ug/mL (Not Estab.)
== END ==
LOC: CCC 10:24
PROVIDERS: ATTEND Family Medicine
DX: E11.9 Type 2 diabetes mellitus without complications (principal)
CPT/HCPCS: 36415; 80053; 80061; 81001; 82043; 82570; 84550; 85025

== ENCOUNTER 2020-01-20 13:46 | Emergency (ER) | payer SELFPAY ==
[2020-01-20 15:31] VITALS: BP 138/72
[2020-01-20] MEDS ORDERED: IBUPROFEN 600 MG TABLET PO ONE (16:18)
--- NOTE | 2020-01-20 16:19 | ER Document Report ---
ED Fever - General Chief Complaint: Fever Stated Complaint: FEVER Time Seen by Provider: 01/20/20 15:43 Mode of Arrival: Ambulatory Information source: Patient Notes: 49-year-old male past medical history significant for diabetes and bipolar presents to the emergency room complaining of swollen glands that started on Friday that have since resolved. Denies sore throat. States he started with a fever of 101.9 on Friday. General body aches. Has been taking Tylenol with some relief. Last dose at 5:30 AM. He denies any recent travel. He denies any COVID-19 exposure. Denies a sore throat at this time. Does complain of a cough that started yesterday. Denies any other ill contacts. TRAVEL OUTSIDE OF THE [place] IN LAST 30 DAYS: No - Related Data Allergies/Adverse Reactions: No Known Allergies Allergy (Verified 03/15/19 15:24) Past Medical History - General Information source: Patient - Social History Smoking Status: Former Smoker Frequency of alcohol use: None Drug Abuse: None Family History: Reviewed & Not Pertinent Patient has homicidal ideation: No Endocrine Medical History: Reports: Hx Diabetes Mellitus Type 2 Renal/ Medical History: Denies: Hx Peritoneal Dialysis Psychiatric Medical History: Reports: Hx Bipolar Disorder Past Surgical History: Reports: Hx Cholecystectomy Review of Systems - Review of Systems Constitutional: Fever Cardiovascular: No symptoms reported Respiratory: Cough Musculoskeletal: Muscle pain Skin: No symptoms reported Hematologic/Lymphatic: Swollen glands Neurological/Psychological: No symptoms reported -: Yes All other systems reviewed and negative Physical Exam - Vital signs Vitals: Temp Pulse Resp BP Pulse Ox 99.5 F 109 H 20 145/87 H 97 01/20/20 13:52 01/20/20 13:52 01/20/20 13:52 01/20/20 13:52 01/20/20 13:52 - Notes Notes: VITAL SIGNS: Within normal limits. GENERAL: Mild acute distress, non-toxic appearance. HEAD: Normal with no signs of head trauma. EYES: PERRLA, EOMI, conjunctiva normal, no discharge. EARS: Hearing grossly intact. NOSE: Normal. THROAT: Oropharynx is normal. NECK: Normal range of motion, no tenderness, supple, no lymphadenopathy, No adenopathy, no JVD. CHEST: Clear breath sounds bilaterally. No wheezes, rales, or rhonchi. CARDIAC: Tachycardic, normal. S1 and S2, without murmurs, gallops, or rubs. VASCULAR: No Edema. Peripheral pulses normal and equal in all extremities. ABDOMEN: Normal and soft with no tenderness, no masses or pulsatile masses. No organomegaly. Positive bowel sounds x4. No CVA tenderness noted bilaterally. GASTROINTESTINAL: Bowel sounds normal GENITOURINARY: Normal, No tenderness LYMPATHTIC: No lymphadenopathy noted. MUSCULOSKELETAL: Good range of motion of all major joints. Extremities without clubbing, cyanosis or edema. NEUROLOGICAL: Alert and oriented x 3. No focal sensory or strength deficits. Speech normal. Follows commands appropriately. PSYCHIATRIC: Normal Affect, judgement and mood. SKIN: Normal appearance with no rashes or lesions. Course - Re-evaluation Re-evalutation: 01/20/20 18:50 Patient is afebrile, nontoxic-appearing, reviewed lab and x-ray results with patient. Counseled on viral illness, supportive therapy. Offered COVID-19 testing patient refused. He will follow-up with primary care physician if not proving in 2 to 3 days. Patient was given strict return to the emergency room guidelines. Return for any new or worsening symptoms. All questions were answered. Patient verbalized understanding and agrees with plan of care. - Vital Signs Vital signs: Temp Pulse Resp BP Pulse Ox 98.7 F 89 18 138/72 H 98 01/20/20 17:45 01/20/20 15:24 01/20/20 15:24 01/20/20 15:24 01/20/20 15:24 - Diagnostic Test Radiology reviewed: Reports reviewed Discharge - Discharge Clinical Impression: Viral URI with cough Fever Qualifiers: Fever type: unspecified Qualified Code(s): R50.9 - Fever, unspecified Condition: Stable Disposition: HOME, SELF-CARE Instructions: Acetaminophen, Fever ([facility]), Upper Respiratory Illness ([facility]), Viral Syndrome ([facility]) Additional Instructions: Push fluids. Take Tylenol and or Motrin as needed for fevers. Recheck with primary care physician if not improving in 2 to 3 days. Return to the emergency room for any new or worsening symptoms.
--- NOTE | 2020-01-20 17:35 | RADIOLOGY REPORT (SQ) ---
EXAM DESCRIPTION: CHEST SINGLE VIEW IMAGES COMPLETED DATE/TIME: 01/20/2020 4:00 pm REASON FOR STUDY: cough COMPARISON: 03/15/2019 EXAM PARAMETERS: NUMBER OF VIEWS: One view. TECHNIQUE: Single frontal radiographic view of the chest acquired. RADIATION DOSE: NA LIMITATIONS: None. FINDINGS: LUNGS AND PLEURA: No opacities, masses or pneumothorax. No pleural effusion. MEDIASTINUM AND HILAR STRUCTURES: No masses. Contour normal. HEART AND VASCULAR STRUCTURES: Heart normal in size. Normal vasculature. BONES: No acute findings. HARDWARE: None in the chest. OTHER: No other significant finding. IMPRESSION: NO ACUTE RADIOGRAPHIC FINDING IN THE CHEST. TECHNICAL DOCUMENTATION: JOB ID: [id number] 2010 [employer]- All Rights Reserved Reading location - IP/workstation name: [id number]
[2020-01-20 18:15] LABS: A TYPE INFLUENZA AG NEGATIVE (NEGATIVE); B INFLUENZA AG NEGATIVE (NEGATIVE)
== END 2020-01-20 18:55 | disposition home or self-care (01) ==
LOC: ER 13:46
DX: J06.9 Acute upper respiratory infection, unspecified (principal); B97.89 Other viral agents as the cause of diseases classified elsewhere; R05 Cough; R50.9 Fever, unspecified; M79.10 Myalgia, unspecified site; R59.1 Generalized enlarged lymph nodes; E11.9 Type 2 diabetes mellitus without complications; Z87.891 Personal history of nicotine dependence
CPT/HCPCS: 71045; 87804; 99283

== ENCOUNTER 2020-01-26 14:53 | Emergency (ER) | payer SELFPAY ==
[2020-01-26] MEDS ORDERED: ACETAMINOPHEN 325 MG TABLET PO ONE (16:06)
[2020-01-26] MEDS ORDERED: NORMAL SALINE 1000 ML 1,000 ML IV ONE (16:06)
[2020-01-26 16:10] LABS: APPEARANCE,URINE SLIGHTLY-CLOUDY; BILIRUBIN,URINE NEGATIVE (NEGATIVE); COLOR,URINE AMBER; GLUCOSE, URINE >=500 mg/dL (NEGATIVE); KETONES,URINE 20 mg/dL (NEGATIVE); PROTEIN,URINE 30 mg/dL (NEGATIVE); URINE SPECIFIC GRAVITY 1.022
--- NOTE | 2020-01-26 16:14 | ER Document Report ---
ED GI/ - General Chief Complaint: Flank Pain Stated Complaint: FEVER Time Seen by Provider: 01/26/20 15:39 Primary Care Provider: [facility] [Primary Care Provider] - Follow up as needed Notes: HPI: Patient is a 49-year-old male with past medical history as recorded including diabetes and psychiatric disease who presents today stating a fever starting around 5 days ago. He was seen and evaluated here with some cervical lymphadenopathy and a mild nonproductive cough. X-ray showed no pneumonia. Geo brandie was offered COVID testing but refused at that time. Patient denies any and all swollen glands at this time and denies any cough. He denies any runny nose, congestion, sore throat, or shortness of breath. No chest pain or leg swelling. No insect bites or tick bites. No skin lesions or rashes. Patient states he has had for the last 24 hours and bilateral flank pain. No radiation to the abdomen. No abdominal pain. No vomiting or diarrhea. No dysuria. Patient states he did notice his urine was a little "dark". History of kidney stone. ROS: See HPI All other review of systems reviewed and otherwise negative Reviewed vital signs and nursing note as charted by RN. PHYSICAL EXAM: CONSTITUTIONAL: Alert and oriented and responds appropriately to questions. Well-appearing; well-nourished HEAD: Normocephalic; atraumatic EYES: PERRL; Conjunctivae clear, sclerae non-icteric ENT: Normal nose; no rhinorrhea; moist mucous membranes; pharynx without lesions noted NECK: Supple without meningismus; non-tender; no cervical lymphadenopathy, no masses CARD: Regular rate and rhythm; no murmurs; symmetric distal pulses RESP: Normal chest excursion without splinting or tachypnea; breath sounds clear and equal bilaterally; no wheezes, no rhonchi, no rales ABD/GI: Normal bowel sounds; non-distended; soft, non-tender to deep palpation of all 4 quadrants of the abdomen BACK: The back appears normal and is non-tender to palpation along the entire midline spine with no swelling, erythema, fluctuance, or step-offs. Patient has some bilateral CVA tenderness with no swelling or erythema EXT: Normal ROM in all joints; non-tender to palpation; no edema SKIN: No acute lesions noted NEURO: CN 2-12 intact; 5/5 bilateral upper and lower extremity strength with sensation intact to light touch PSYCH: The patient's mood and manner are appropriate. Grooming and personal hygi celestine are appropriate. TRAVEL OUTSIDE OF THE [place] IN LAST 30 DAYS: No - Related Data Allergies/Adverse Reactions: No Known Allergies Allergy (Verified 03/15/19 15:24) Past Medical History - Social History Smoking Status: Current Every Day Smoker Frequency of alcohol use: None Drug Abuse: None Family History: Reviewed & Not Pertinent Patient has homicidal ideation: No Endocrine Medical History: Reports: Hx Diabetes Mellitus Type 2 Renal/ Medical History: Denies: Hx Peritoneal Dialysis Psychiatric Medical History: Reports: Hx Bipolar Disorder Past Surgical History: Reports: Hx Abdominal Surgery - hernia repair, Hx Cholecystectomy Physical Exam - Vital signs Vitals: Temp Pulse Resp BP Pulse Ox 100 F 114 H 18 146/105 H 98 01/26/20 15:13 01/26/20 15:13 01/26/20 15:13 01/26/20 15:13 01/26/20 15:13 Course - Re-evaluation Re-evalutation: Given the history and physical examination we will obtain basic labs, blood cultures, urine analysis, Renal colic CT scan, and reassess. X-ray 5 days ago was unremarkable. Patient denies any cough at this time. No hypoxia present. Patient has no headache, n riaz pain, or rash. I do believe acute bacterial meningitis for this extended period of time with no above symptoms to be unlikely. 01/26/20 18:02 Labs and imaging as recorded. White blood cell count as recorded. Slight transaminitis that was not present previously. Slight splenomegaly. I have added a Monospot test. Patient does not have a gallbladder. No tenderness to the upper or lower abdomen. No obvious signs of infection. Blood cultures have been sent. Fluids and antipyretics have been provided. Patient has accepted the COVID swab at this time. 01/26/20 18:35 Monospot is negative. Patient does have some transaminitis with a low sodium. Patient has no headache and has no rash to the wrists or palms. However it is summertime. Given the above history and physical, blood cultures pending, COVID pending, patient looks well, vital signs stable, I will provide a course of d oxycycline with strict return precautions and follow-up with the primary care physician. - Vital Signs Vital signs: Temp Pulse Resp BP Pulse Ox 99.3 F 89 20 145/86 H 98 01/26/20 18:35 01/26/20 18:35 01/26/20 18:35 01/26/20 18:35 01/26/20 18:35 - Laboratory Result Diagrams: 01/26/20 16:50 01/26/20 16:50 Laboratory results interpreted by me: 01/26/20 01/26/20 01/26/20 15:50 16:50 16:50 Hgb 13.4 L Sodium 132.4 L Glucose 280 H AST 69 H ALT 144 H Alkaline Phosphatase 183 H Urine Protein 30 H Urine Glucose (UA) >=500 H Urine Ketones 20 H Urine Blood SMALL H Urine Urobilinogen 2.0 H Discharge - Discharge Clinical Impression: Transaminitis Fever Qualifiers: Fever type: unspecified Qualified Code(s): R50.9 - Fever, unspecified Condition: Good Disposition: HOME, SELF-CARE Additional Instructions: Come back immediately for any headache, rash, change in mental status, persi stent vomiting or diarrhea, cough or shortness of breath, or any other acute problems. Please take the antibiotics as prescribed. Please follow-up with the COVID testing as discussed as well as your primary care physician. Please make sure that you quarantine yourself and to your COVID test has returned. Prescriptions: Doxycycline Hyclate 100 mg PO BID #20 tablet. Referrals: [facility] [Primary Care Provider] - Follow up as needed
--- NOTE | 2020-01-26 16:38 | RADIOLOGY REPORT (SQ) ---
EXAM DESCRIPTION: CT ABD/PELVIS NO ORAL OR IV IMAGES COMPLETED DATE/TIME: 01/26/2020 4:24 pm REASON FOR STUDY: 34; flank pain and fever; h/o stone COMPARISON: None. TECHNIQUE: CT scan of the abdomen and pelvis performed without intravenous or oral contrast. Images reviewed with lung, soft tissue, and bone windows. Reconstructed coronal and sagittal MPR images revi ewed. All images stored on PACS. All CT scanners at this facility use dose modulation, iterative reconstruction, and/or weight based d osing when appropriate to reduce radiation dose to as low as reasonably achievable (ALARA). [facility]: Dose Right [facility]: CareDose [facility]: Dose Right [facility]: Teradose 4D [facility]: Smart [employer] [facility] RADIATION DOSE: CT Rad equipment meets quality standard of care and radiation dose reduction techniq ues were employed. CTDIvol: 9.5 mGy. DLP: 539 mGy-cm.mGy. LIMITATIONS: None. FINDINGS: LOWER CHEST: No significant findings. No nodules or infiltrates. NON-CONTRASTED LIVER, SPLEEN, ADRENALS: Normal liver and adrenal glands. Splenomegaly. PANCREAS: No masses. No peripancreatic inflammatory changes. GALLBLADDER: Surgically absent. RIGHT KIDNEY AND URETER: No suspicious masses. Assessment limited by lack of IV contrast. No signif icant calcifications. No hydronephrosis or hydroureter. LEFT KIDNEY AND URETER: No suspicious masses. Assessment limited by lack of IV contrast. No signifi cant calcifications. No hydronephrosis or hydroureter. AORTA AND RETROPERITONEUM: No aneurysm. No retroperitoneal masses or adenopathy. BOWEL AND PERITONEAL CAVITY: No obvious masses or inflammatory changes. No free fluid. APPENDIX: Normal. PELVIS, BLADDER, AND ABDOMINAL WALL:No abnormal masses. No free fluid. Bladder normal. BONES: No significant findings. OTHER: No other significant finding. IMPRESSION: Splenomegaly. No other significant finding in the abdomen or pelvis. No urinary tract findings. COMMENT: Quality ID # [id number]: Final reports with documentation of one or more dose reduction techniques (e.g., Automated exposure control, adjustment of the mA and/or kV according to patient size, use of iterative reconstruction technique) TECHNICAL DOCUMENTATION: JOB ID: [id number] 2010 [employer]- All Rights Reserved Reading location - IP/workstation name: [email or web address]
[2020-01-26 17:25] LABS: ABSOLUTE LYMPHOCYTES (AUTO) 1.6 10^3/uL (0.5-4.7); ABSOLUTE MONOCYTES (AUTO) 0.6 10^3/uL (0.1-1.4); ABSOLUTE NEUT (AUTO) 2.8 10^3/uL (1.7-8.2); BASOPHILS % (AUTO) 0.5 % (0-2); EOSINOPHILS % (AUTO) 0.6 % (0-6); HEMATOCRIT 38.2 % (37.9-51.0); HEMOGLOBIN 13.4 g/dL (13.5-17.0); LYMPHOCYTES % (AUTO) 31.9 % (13-45); MEAN CORPUSCULAR HGB CONC 35.2 g/dL (32.0-36.0); MEAN CORPUSCULAR VOLUME 85 fl (80-97); MONOCYTES % (AUTO) 11.9 % (3-13); PLATELET COUNT 199 10^3/uL (150-450); RED BLOOD COUNT 4.48 10^6/uL (4.35-5.55); RED CELL DISTRIBUTION WIDTH 13.9 % (11.5-14.0); SEGMENTED NEUTROPHILS % (AUTO) 55.1 % (42-78); TOTAL CELLS COUNTED % (AUTO) 100 %
[2020-01-26 17:46] LABS: ALBUMIN 4.2 g/dL (3.5-5.0); ALKALINE PHOSPHATASE 183 U/L (38-126); ANION GAP 6 (5-19); ASPARTATE AMINO TRANSFERASE 69 U/L (17-59); BILIRUBIN,DIRECT 0.4 mg/dL (0.0-0.4); BILIRUBIN,TOTAL 1.3 mg/dL (0.2-1.3); BLOOD UREA NITROGEN 18 mg/dL (7-20); CALCIUM 8.8 mg/dL (8.4-10.2); CARBON DIOXIDE 28 mmol/L (22-30); CHLORIDE 98 mmol/L (98-107); GLUCOSE 280 mg/dL (75-110); POTASSIUM 4.2 mmol/L (3.6-5.0); TOTAL PROTEIN 7.4 g/dL (6.3-8.2)
[2020-01-26] MEDS ORDERED: MORPHINE SULFATE 10 MG/ML INJ IV ONE (18:01)
[2020-01-26] MEDS ORDERED: IBUPROFEN 600 MG TABLET PO ONE (18:25)
[2020-01-26 18:35] VITALS: BP 145/86
--- NOTE | 2020-01-26 18:35 | RADIOLOGY REPORT (SQ) ---
EXAM DESCRIPTION: . CHEST SINGLE VIEW IMAGES COMPLETED DATE/TIME: 01/26/2020 5:06 pm REASON FOR STUDY: 34; fever COMPARISON: 760 EXAM PARAMETERS: NUMBER OF VIEWS: One view. TECHNIQUE: Single frontal radiographic view of the chest acquired. RADIATION DOSE: NA LIMITATIONS: None. FINDINGS: LUNGS AND PLEURA: Lungs are hyperinflated. No focal consolidation or pleural effusion. N o pneumothorax. MEDIASTINUM AND HILAR STRUCTURES: No masses. Contour normal. HEART AND VASCULAR STRUCTURES: Heart normal in size. Normal vasculature. BONES: No acute findings. HARDWARE: None in the chest. OTHER: No other significant finding. IMPRESSION: No acute cardiopulmonary disease. Hyperinflated lungs which can be seen with obstructiv e lung disease. TECHNICAL DOCUMENTATION: JOB ID: [id number] 2010 [email or web address]- All Rights Reserved Reading location - IP/workstation name: [id number]
[2020-01-26] MEDS ORDERED: DOXYCYCLINE HYCLATE 100 MG TABLET PO ONE (18:36)
== END 2020-01-26 19:41 | disposition home or self-care (01) ==
LOC: ER 14:53
DX: R74.0 Nonspecific elevation of levels of transaminase and lactic acid dehydrogenase [LDH] (principal); R50.9 Fever, unspecified; R10.9 Unspecified abdominal pain; R59.0 Localized enlarged lymph nodes; R05 Cough; F17.200 Nicotine dependence, unspecified, uncomplicated; E11.9 Type 2 diabetes mellitus without complications; Z20.828 Contact with and (suspected) exposure to other viral communicable diseases
CPT/HCPCS: 99284; 96360; 36415; 87040; 85025; 87635; 86308; 80053; 81001; 71045; 74176; J7030; C9803

== ENCOUNTER → 2020-03-10 | Outpatient (CLI) | payer OTHER ==
[2020-03-10 12:10] LABS: ABSOLUTE EOSINOPHILS # (AUTO) 0.1 10^3/uL (0.0-0.6); ABSOLUTE LYMPHOCYTES (AUTO) 2.4 10^3/uL (0.5-4.7); ABSOLUTE MONOCYTES (AUTO) 0.5 10^3/uL (0.1-1.4); ABSOLUTE NEUT (AUTO) 3.1 10^3/uL (1.7-8.2); BASOPHILS % (AUTO) 0.7 % (0-2); EOSINOPHILS % (AUTO) 2.3 % (0-6); HEMATOCRIT 38.6 % (37.9-51.0); HEMOGLOBIN 13.7 g/dL (13.5-17.0); LYMPHOCYTES % (AUTO) 38.6 % (13-45); MEAN CORPUSCULAR HEMOGLOBIN 31.2 pg (27.0-33.4); MEAN CORPUSCULAR HGB CONC 35.5 g/dL (32.0-36.0); MEAN CORPUSCULAR VOLUME 88 fl (80-97); MONOCYTES % (AUTO) 8.6 % (3-13); PLATELET COUNT 154 10^3/uL (150-450); RED CELL DISTRIBUTION WIDTH 14.1 % (11.5-14.0); SEGMENTED NEUTROPHILS % (AUTO) 49.8 % (42-78); TOTAL CELLS COUNTED % (AUTO) 100 %; WHITE BLOOD COUNT 6.3 10^3/uL (4.0-10.5)
[2020-03-10 12:20] LABS: APPEARANCE,URINE CLEAR; BILIRUBIN,URINE NEGATIVE (NEGATIVE); COLOR,URINE YELLOW; GLUCOSE, URINE 50 mg/dL (NEGATIVE); KETONES,URINE NEGATIVE (NEGATIVE); LEUKOCYTE ESTERASE,URINE NEGATIVE (NEGATIVE); NITRITE,URINE NEGATIVE (NEGATIVE); PROTEIN,URINE NEGATIVE (NEGATIVE); UROBILINOGEN,URINE NEGATIVE mg/dL (<2.0)
[2020-03-10 12:47] LABS: ALBUMIN 4.3 g/dL (3.5-5.0); ALKALINE PHOSPHATASE 92 U/L (38-126); AMYLASE 71 U/L (30-110); ANION GAP 8 (5-19); ASPARTATE AMINO TRANSFERASE 25 U/L (17-59); BILIRUBIN,DIRECT 0.4 mg/dL (0.0-0.4); BILIRUBIN,TOTAL 0.7 mg/dL (0.2-1.3); BLOOD UREA NITROGEN 17 mg/dL (7-20); CARBON DIOXIDE 28 mmol/L (22-30); CHLORIDE 105 mmol/L (98-107); CHOLESTEROL 168.02 mg/dL (0-200); GLUCOSE 159 mg/dL (75-110); POTASSIUM 3.9 mmol/L (3.6-5.0); TOTAL PROTEIN 7.2 g/dL (6.3-8.2); TRIGLYCERIDES 169 mg/dL (<150)
[2020-03-10 12:58] LABS: DIRECT LDL 107 mg/dL (<100)
[2020-03-10 13:01] LABS: FREE T4 (FREE THYROXINE) 0.8 ng/dL (0.78-2.19)
[2020-03-10 13:03] LABS: VLDL CHOLESTEROL 33.8 mg/dL (10-31)
[2020-03-10 13:15] LABS: THYROID STIMULATING HORMONE 3.17 uIU/mL (0.47-4.68)
--- NOTE | 2020-03-10 18:20 | RADIOLOGY REPORT (SQ) ---
EXAM DESCRIPTION: MANDIBLE 4 VIEWS OR MORE; C SP 6 OR MORE VIEWS IMAGES COMPLETED DATE/TIME: 03/10/2020 11:58 am REASON FOR STUDY: CERVICAL DISC DENERAGTION; RT TMJ DISORDER; ATYPICAL FACIAL PAIN COMPARISON: None. FINDINGS: Four views mandible: No acute or suspicious bone, joint or soft tissue abnormality. No m andibular fracture. There is some periodontal lucency noted. TMJs are intact although radiographic evaluation is limited. Cervical spine 7 views: No malalignment or abnormal motion. No fracture or bone lesion. Discs are relatively preserved. Lung apices are clear. TECHNICAL DOCUMENTATION: JOB ID: [id number] Reading location - IP/workstation name: [email or web address]
--- NOTE | 2020-03-10 18:20 | RADIOLOGY REPORT (SQ) ---
EXAM DESCRIPTION: MANDIBLE 4 VIEWS OR MORE; C SP 6 OR MORE VIEWS IMAGES COMPLETED DATE/TIME: 03/10/2020 11:58 am REASON FOR STUDY: CERVICAL DISC DENERAGTION; RT TMJ DISORDER; ATYPICAL FACIAL PAIN COMPARISON: None. FINDINGS: Four views mandible: No acute or suspicious bone, joint or soft tissue abnormality. No m andibular fracture. There is some periodontal lucency noted. TMJs are intact although radiographic evaluation is limited. Cervical spine 7 views: No malalignment or abnormal motion. No fracture or bone lesion. Discs are relatively preserved. Lung apices are clear. TECHNICAL DOCUMENTATION: JOB ID: [id number] Reading location - IP/workstation name: [email or web address]
== END ==
LOC: OD 10:56
PROVIDERS: ATTEND Family Medicine
DX: M50.30 Other cervical disc degeneration, unspecified cervical region (principal); M26.601 Right temporomandibular joint disorder, unspecified; G50.1 Atypical facial pain; R51 Headache; R29.898 Other symptoms and signs involving the musculoskeletal system; E11.9 Type 2 diabetes mellitus without complications; E80.7 Disorder of bilirubin metabolism, unspecified
CPT/HCPCS: 36415; 70110; 72052; 80053; 80061; 81001; 82150; 84439; 84443; 85025

== ENCOUNTER 2020-04-07 15:05 | Emergency (ER) | payer OTHER, SELFPAY ==
[2020-04-07] MEDS ORDERED: NORMAL SALINE 1000 ML 1,000 ML IV ONE (16:01)
--- NOTE | 2020-04-07 16:01 | ER Document Report ---
ED Medical Screen (RME) - General Chief Complaint: Blood Pressure Problem Stated Complaint: DIZZYNESS,ELEVATED BLOOD PRESSURE Time Seen by Provider: 04/07/20 15:54 Primary Care Provider: EDWIN SWEENEY [Primary Care Provider] - Follow up as needed Mode of Arrival: Ambulatory Information source: Patient Notes: Patient presents complaining of dizziness off and on since yesterday. Patient reports having chest pressure yesterday with the dizziness. Patient denies any chest pressure today. Patient denies any nausea vomiting or shortness of breath. Patient does complain of feeling fatigued. Patient reports elevated blood pressure and heart rate yesterday. Patient does not have a history of hypertension. Patient does have a history of diabetes. I have greeted and performed a rapid initial assessment of this patient. A comprehensive ED assessment and evaluation of the patient, analysis of test results and completion of the medical decision making process will be conducted by additional ED providers. TRAVEL OUTSIDE OF THE [place] IN LAST 30 DAYS: No - Related Data Allergies/Adverse Reactions: No Known Allergies Allergy (Verified 01/26/20 18:40) Past Medical History Endocrine Medical History: Reports: Hx Diabetes Mellitus Type 2 Renal/ Medical History: Denies: Hx Peritoneal Dialysis Psychiatric Medical History: Reports: Hx Bipolar Disorder Past Surgical History: Reports: Hx Abdominal Surgery - hernia repair, Hx Cholecystectomy Physical Exam - Vital signs Vitals: Temp Pulse Resp BP Pulse Ox 98.4 F 98 16 144/80 H 99 04/07/20 15:25 04/07/20 15:25 04/07/20 15:25 04/07/20 15:25 04/07/20 15:25 - Respiratory Respiratory status: No respiratory distress Breath sounds: Normal - Cardiovascular Rhythm: Regular Heart sounds: S1 appreciated, S2 appreciated Course - Vital Signs Vital signs: Temp Pulse Resp BP Pulse Ox 98.4 F 98 16 144/80 H 99 04/07/20 15:25 04/07/20 15:25 04/07/20 15:25 04/07/20 15:25 04/07/20 15:25 Doctor's Discharge - Discharge Referrals: EDWIN SWEENEY [Primary Care Provider] - Follow up as needed
--- NOTE | 2020-04-07 16:36 | RADIOLOGY REPORT (SQ) ---
EXAM DESCRIPTION: CHEST SINGLE VIEW IMAGES COMPLETED DATE/TIME: 04/07/2020 4:24 pm REASON FOR STUDY: dizzy, cp COMPARISON: 01/26/2020 EXAM PARAMETERS: NUMBER OF VIEWS: One view. TECHNIQUE: Single frontal radiographic view of the chest acquired. RADIATION DOSE: NA LIMITATIONS: None. FINDINGS: LUNGS AND PLEURA: No opacities, masses or pneumothorax. No pleural effusion. MEDIASTINUM AND HILAR STRUCTURES: No masses. Contour normal. HEART AND VASCULAR STRUCTURES: Heart normal in size. Normal vasculature. BONES: No acute findings. HARDWARE: None in the chest. OTHER: No other significant finding. IMPRESSION: NO ACUTE RADIOGRAPHIC FINDING IN THE CHEST. TECHNICAL DOCUMENTATION: JOB ID: [id number] 2010 [employer]- All Rights Reserved Reading location - IP/workstation name: [email or web address]
[2020-04-07 17:18] LABS: ABSOLUTE EOSINOPHILS # (AUTO) 0.1 10^3/uL (0.0-0.6); ABSOLUTE MONOCYTES (AUTO) 0.7 10^3/uL (0.1-1.4); BASOPHILS % (AUTO) 0.4 % (0-2); EOSINOPHILS % (AUTO) 1.1 % (0-6); HEMATOCRIT 41.4 % (37.9-51.0); HEMOGLOBIN 14.7 g/dL (13.5-17.0); LYMPHOCYTES % (AUTO) 20.6 % (13-45); MEAN CORPUSCULAR HEMOGLOBIN 31.4 pg (27.0-33.4); MEAN CORPUSCULAR HGB CONC 35.4 g/dL (32.0-36.0); MEAN CORPUSCULAR VOLUME 89 fl (80-97); MONOCYTES % (AUTO) 6.7 % (3-13); PLATELET COUNT 178 10^3/uL (150-450); RED BLOOD COUNT 4.66 10^6/uL (4.35-5.55); RED CELL DISTRIBUTION WIDTH 13.9 % (11.5-14.0); SEGMENTED NEUTROPHILS % (AUTO) 71.2 % (42-78); TOTAL CELLS COUNTED % (AUTO) 100 %; WHITE BLOOD COUNT 9.8 10^3/uL (4.0-10.5)
[2020-04-07 17:23] LABS: APPEARANCE,URINE SLIGHTLY-CLOUDY; BILIRUBIN,URINE NEGATIVE (NEGATIVE); COLOR,URINE YELLOW; GLUCOSE, URINE >=500 mg/dL (NEGATIVE); KETONES,URINE TRACE mg/dL (NEGATIVE); LEUKOCYTE ESTERASE,URINE NEGATIVE (NEGATIVE); NITRITE,URINE NEGATIVE (NEGATIVE); PROTEIN,URINE 30 mg/dL (NEGATIVE); URINE SPECIFIC GRAVITY 1.025; UROBILINOGEN,URINE NEGATIVE mg/dL (<2.0)
[2020-04-07 17:38] LABS: ALBUMIN 4.5 g/dL (3.5-5.0); ALKALINE PHOSPHATASE 81 U/L (38-126); ANION GAP 7 (5-19); ASPARTATE AMINO TRANSFERASE 25 U/L (17-59); BILIRUBIN,DIRECT 0.3 mg/dL (0.0-0.4); BILIRUBIN,TOTAL 0.7 mg/dL (0.2-1.3); BLOOD UREA NITROGEN 19 mg/dL (7-20); CALCIUM 9.3 mg/dL (8.4-10.2); CARBON DIOXIDE 28 mmol/L (22-30); CHLORIDE 104 mmol/L (98-107); GLUCOSE 221 mg/dL (75-110); NEONATAL BILIRUBIN RESULT 0.4 mg/dL (0.1-1.1); POTASSIUM 4.4 mmol/L (3.6-5.0); TOTAL PROTEIN 7.3 g/dL (6.3-8.2)
--- NOTE | 2020-04-07 17:56 | EKG REPORT ---
SEVERITY:- NORMAL ECG - SINUS RHYTHM : Confirmed by: Jamarcus Davis MD 07-Apr-2020 17:55:00
--- NOTE | 2020-04-07 21:35 | ER Document Report ---
ED General - General Chief Complaint: High Blood Pressure Stated Complaint: DIZZYNESS,ELEVATED BLOOD PRESSURE Time Seen by Provider: 04/07/20 15:54 Primary Care Provider: [facility] [Primary Care Provider] - Follow up in 3-5 days Mode of Arrival: Ambulatory Notes: Patient is a 49-year-old male who presents emergency department with a chief complaint of dizziness. Patient had an episode of dizziness yesterday. States that he was drinking caffeine. Patient states that he is very sensitive to caffeine. Patient also endorses significant stress and his personal life, as his 's ex- is living at his house. Patient states that yesterday he woke up and his and her ex- are missing. He denies any numbness or tingling. Denies any dizziness today. States that he had some slight chest pressure yesterday also. States the chest pressure is not there anymore. TRAVEL OUTSIDE OF THE [place] IN LAST 30 DAYS: No - Related Data Allergies/Adverse Reactions: No Known Allergies Allergy (Verified 04/07/20 19:35) Past Medical History - General Information source: Patient - Social History Smoking Status: Current Every Day Smoker Chew tobacco use (# tins/day): No Frequency of alcohol use: None Drug Abuse: None Family History: Reviewed & Not Pertinent Patient has homicidal ideation: No Endocrine Medical History: Reports: Hx Diabetes Mellitus Type 2 Renal/ Medical History: Denies: Hx Peritoneal Dialysis Psychiatric Medical History: Reports: Hx Bipolar Disorder Past Surgical History: Reports: Hx Abdominal Surgery - hernia repair, Hx Cholecystectomy Review of Systems - Review of Systems Notes: REVIEW OF SYSTEMS: CONSTITUTIONAL : Denies recent illness. Denies recent unintentional weight loss. Denies fever, chills, or sweats. EENT: Denies eye, ear, throat, or mouth pain, discharge, or symptoms. Denies nasal or sinus congestion. CARDIOVASCULAR: See HPI. RESPIRATORY: Denies shortness of breath, cough, congestion, difficulty breathing, or wheezing. GASTROINTESTINAL: Denies nausea, vomiting, and diarrhea. Denies abdominal pain. Denies constipation. GENITOURINARY: Denies difficulty urinating, burning, blood in urine, urgency or frequency. MUSCULOSKELETAL: Denies neck and back pain. Denies joint pain or swelling. SKIN: Denies rash, itchiness, or lesions HEMATOLOGIC : Denies easy bruising or bleeding. LYMPHATIC: Denies swollen, painful, enlarged glands. NEUROLOGICAL: Denies no numbness or tingling denies weakness. Denies headache. Denies altered mental status. Denies alteration in speech. See HPI. PSYCHIATRIC: See HPI. All other systems reviewed and negative. Physical Exam - Vital signs Vitals: Temp Pulse Resp BP Pulse Ox 98.4 F 98 16 144/80 H 99 04/07/20 15:25 04/07/20 15:25 04/07/20 15:25 04/07/20 15:25 04/07/20 15:25 - Notes Notes: PHYSICAL EXAMINATION: GENERAL: Appears well, healthy, well-nourished, no acute distress. HEAD: Normocephalic, atraumatic. EYES: PERRL, conjunctiva normal, all extraocular movements intact, sclera nonicteric ENT: Moist mucous membranes. NECK: Supple, no noticeable swelling, redness, rash. Normal range of motion. LUNGS: Equal breath sounds bilaterally and clear to auscultation. No wheezes rales or rhonchi. CARDIOVASCULAR: S1-S2, regular rate, regular rhythm. Radial pulses 2+, normal. ABDOMEN: Normoactive bowel sounds. Soft, nontender, no guarding, no rebound tenderness, and no masses palpated. EXTREMITIES: Normal strength and range of motion, no pitting or edema. No cyanosis. NEUROLOGICAL: Moves all extremities upon command. Strength 5/5 in all extremities. PSYCH: Normal mood, normal affect. SKIN: Warm, dry. No rash, lesions, ulcerations noted. Normal skin turgor. Course - Re-evaluation Re-evalutation: 04/07/20 Chest x-ray was unremarkable. Hematology is unremarkable. Chemistries show a glucose of 221, which went down to 171 over time. Troponin was unremarkable. TSH is normal. Magnesium is only slightly low. Based off the patient's history of drinking caffeine and having significant stressors of having the patient's 's ex- living with him, I suspect the stressors caused him to have his symptoms. Patient's blood pressure is normal. It has been normal here in the emergency department. Advised him to follow-up with his primary care provider and also follow-up with his mental health provider for follow-up. He is in agreement with this plan. Follow-up precautions were given. Verbal discharge instructions were given to the patient. They verbalized understanding. They are stable for discharge. - Vital Signs Vital signs: Temp Pulse Resp BP Pulse Ox 98.7 F 98 21 H 122/82 100 04/07/20 21:01 04/07/20 15:25 04/07/20 21:01 04/07/20 21:01 04/07/20 21:01 - Laboratory Result Diagrams: 04/07/20 16:50 04/07/20 16:50 Laboratory results interpreted by me: 04/07/20 04/07/20 04/07/20 16:30 16:50 19:53 Glucose 221 H POC Glucose 171 H Magnesium 1.4 L Urine Protein 30 H Urine Glucose (UA) >=500 H Urine Ketones TRACE H Discharge - Discharge Clinical Impression: Dizziness Condition: Stable Disposition: HOME, SELF-CARE Additional Instructions: You were seen today in the emergency department for high blood pressure and dizziness. Your exam, labs and chest x-ray are very reassuring. Your blood pressure was normal here in the emergency department. I highly recommend you keep your appointment with mental health and talk to them about your marriage situation. Follow-up with your regular provider. Referrals: [facility] [Primary Care Provider] - Follow up in 3-5 days
[2020-04-07 21:52] VITALS: BP 122/82
== END 2020-04-07 21:53 | disposition home or self-care (01) ==
LOC: ER 15:05
DX: R42 Dizziness and giddiness (principal); R03.0 Elevated blood-pressure reading, without diagnosis of hypertension; E11.9 Type 2 diabetes mellitus without complications; F17.200 Nicotine dependence, unspecified, uncomplicated
CPT/HCPCS: 36415; 71045; 80053; 81001; 82962; 83735; 84443; 84484; 85025; 93005; 93010; 99285

== ENCOUNTER → 2020-04-17 | Outpatient (CLI) | payer OTHER | LOC: RAD 12:33 | PROVIDERS: ATTEND Family Medicine | DX: J01.90 Acute sinusitis, unspecified (principal) | CPT/HCPCS: 70486 ==

== ENCOUNTER 2020-06-23 10:27 | Emergency (ER) | payer OTHER ==
[2020-06-23 10:45] VITALS: BP 155/92
== END 2020-06-23 11:05 | disposition left against medical advice (07) ==
LOC: ER 10:27
DX: Z53.21 Procedure and treatment not carried out due to patient leaving prior to being seen by health care provider (principal)

== ENCOUNTER 2020-06-23 17:10 | Emergency (ER) | payer OTHER ==
--- NOTE | 2020-06-23 17:39 | ER Document Report ---
ED Medical Screen (RME) - General Chief Complaint: Congestion Stated Complaint: DRY COUGH Time Seen by Provider: 06/23/20 17:34 Primary Care Provider: JOSE DANIEL WOLFE MD [Primary Care Provider] - Follow up as needed Notes: Patient presents complaining of headache and dry cough with chest burning off and on for the past 3 months. Patient had a rapid Covid test today that was positive. Patient became concerned because of his age and his history of diabetes and wanted to get evaluated for his symptoms. I have greeted and performed a rapid initial assessment of this patient. A comprehensive ED assessment and evaluation of the patient, analysis of test results and completion of the medical decision making process will be conducted by additional ED providers. TRAVEL OUTSIDE OF THE [place] IN LAST 30 DAYS: No - Related Data Allergies/Adverse Reactions: No Known Allergies Allergy (Verified 06/23/20 17:34) Past Medical History Endocrine Medical History: Reports: Hx Diabetes Mellitus Type 2 Renal/ Medical History: Denies: Hx Peritoneal Dialysis Psychiatric Medical History: Reports: Hx Bipolar Disorder Past Surgical History: Reports: Hx Abdominal Surgery - hernia repair, Hx Cholecystectomy Physical Exam - Vital signs Vitals: Temp Pulse Resp BP Pulse Ox 99.3 F 93 16 151/81 H 97 06/23/20 17:31 06/23/20 17:31 06/23/20 17:31 06/23/20 17:31 06/23/20 17:31 - General General appearance: Appears well, Alert - Respiratory Respiratory status: No respiratory distress Breath sounds: Normal Course - Vital Signs Vital signs: Temp Pulse Resp BP Pulse Ox 99.3 F 93 16 151/81 H 97 06/23/20 17:31 06/23/20 17:31 06/23/20 17:31 06/23/20 17:31 06/23/20 17:31 Doctor's Discharge - Discharge Referrals: JOSE DANIEL WOLFE MD [Primary Care Provider] - Follow up as needed
[2020-06-23 18:25] LABS: ABSOLUTE LYMPHOCYTES (AUTO) 1.1 10^3/uL (0.5-4.7); ABSOLUTE MONOCYTES (AUTO) 0.7 10^3/uL (0.1-1.4); ABSOLUTE NEUT (AUTO) 3.6 10^3/uL (1.7-8.2); BASOPHILS % (AUTO) 0.6 % (0-2); EOSINOPHILS % (AUTO) 0.4 % (0-6); HEMATOCRIT 43.1 % (37.9-51.0); LYMPHOCYTES % (AUTO) 20.2 % (13-45); MEAN CORPUSCULAR HEMOGLOBIN 30.5 pg (27.0-33.4); MEAN CORPUSCULAR HGB CONC 34.7 g/dL (32.0-36.0); MEAN CORPUSCULAR VOLUME 88 fl (80-97); MONOCYTES % (AUTO) 13.6 % (3-13); PLATELET COUNT 148 10^3/uL (150-450); RED BLOOD COUNT 4.91 10^6/uL (4.35-5.55); SEGMENTED NEUTROPHILS % (AUTO) 65.2 % (42-78); TOTAL CELLS COUNTED % (AUTO) 100 %; WHITE BLOOD COUNT 5.5 10^3/uL (4.0-10.5)
[2020-06-23] MEDS ORDERED: ALBUTEROL SULFATE 0.083% NEB 2.5 MG/3 ML AMPUL NEB ONE (18:30)
--- NOTE | 2020-06-23 18:31 | ER Document Report ---
ED General - General Chief Complaint: Congestion Stated Complaint: DRY COUGH Time Seen by Provider: 06/23/20 17:34 Primary Care Provider: JOSE DANIEL WOLFE MD [Primary Care Provider] - 07/05/20 TRAVEL OUTSIDE OF THE [place] IN LAST 30 DAYS: No - HPI Notes: 49-year-old male with past medical history for diabetes and hypertension to the emergency department with complaints of several weeks of dry cough with chest burning. He states that he had similar symptoms "3 months ago". He states he had a Covid test at that time but he is not sure what the result was. He states that he tried to follow-up with his primary care physician but primary care could not get the records. He states he was given an antibiotic and he felt a lot better after it. He states that the past week or so he started to feel worse. He started to have more cough and body aches. He denies any fevers this time. Denies any loss of smell or taste. He states he went to an urgent care and got a Covid test which was positive. He denies shortness of breath. He states that he has had some difficulty controlling his blood sugar as of late. He has been on VERTILAS and that had been working for him but recently he has been seeing blood sugars in the 200s. Denies any shola chest pain. He states that the chest burning occurs after a cough. He denies any abdominal pain, nausea, vomiting, diarrhea. He is not sure that he has had any positive sick contacts. Apparently he lives in a trailer with his and his 's ex- . - Related Data Allergies/Adverse Reactions: No Known Allergies Allergy (Verified 06/23/20 17:34) Past Medical History - General Information source: Patient - Social History Smoking Status: Current Every Day Smoker Frequency of alcohol use: Occasional Drug Abuse: None Family History: Reviewed & Not Pertinent Endocrine Medical History: Reports: Hx Diabetes Mellitus Type 2 Renal/ Medical History: Denies: Hx Peritoneal Dialysis Psychiatric Medical History: Reports: Hx Bipolar Disorder Past Surgical History: Reports: Hx Abdominal Surgery - hernia repair, Hx Cholecystectomy Review of Systems - Review of Systems Constitutional: Malaise, Other - fatigue. denies: Chills, Fever EENT: denies: Ear pain, Throat pain, Difficulty swallowing, Throat swelling, Mouth pain Cardiovascular: See HPI - chest burning after cough. denies: Palpitations, Dizziness, Lightheaded, Edema Respiratory: Cough. denies: Short of breath, Wheezing Gastrointestinal: denies: Abdominal pain, Diarrhea, Nausea, Vomiting Genitourinary: No symptoms reported Male Genitourinary: No symptoms reported Musculoskeletal: Muscle pain - body aches Skin: No symptoms reported Hematologic/Lymphatic: No symptoms reported Neurological/Psychological: No symptoms reported -: Yes All other systems reviewed and negative Physical Exam - Vital signs Vitals: Temp Pulse Resp BP Pulse Ox 99.3 F 93 16 151/81 H 97 06/23/20 17:31 06/23/20 17:31 06/23/20 17:31 06/23/20 17:31 06/23/20 17:31 Interpretation: Hypertensive - Notes Notes: PHYSICAL EXAMINATION: GENERAL: Well-appearing, well-nourished and in no acute distress. HEAD: Atraumatic, normocephalic. EYES: Pupils equal round and reactive to light, extraocular movements intact, sclera anicteric, conjunctiva are normal. ENT: nares patent, oropharynx clear without exudates. Moist mucous membranes. NECK: Normal range of motion, supple without lymphadenopathy LUNGS: Breath sounds clear to auscultation bilaterally and equal. No wheezes rales or rhonchi. HEART: Regular rate and rhythm without murmurs ABDOMEN: Soft, nontender, normoactive bowel sounds. No guarding, no rebound. No masses appreciated. EXTREMITIES: Normal range of motion, no pitting or edema. No cyanosis. NEUROLOGICAL: No focal neurological deficits. Moves all extremities spontaneously and on command. PSYCH: Normal mood, normal affect. SKIN: Warm, Dry, normal turgor, no rashes or lesions noted. Course - Re-evaluation Re-evalutation: 06/23/20 19:39 Prior to giving insulin for patient's hyperglycemia, we rechecked his glucose and it had decreased down to 288. Will hold insulin. Patient has reassuring labs otherwise. His bicarb is normal and he has no anion gap. His kidney function is reassuring. Chest x-ray is negative. Plan will be to send home with albuterol inhaler as well as Tessalon. Encouraged to return if he has any worsening symptoms. Also encouraged that you must quarantine for at least 10 days while he has COVID-19. Primary care follow-up. Patient agrees with the plan - Vital Signs Vital signs: Temp Pulse Resp BP Pulse Ox 99.3 F 93 16 151/81 H 97 06/23/20 17:31 06/23/20 17:31 06/23/20 17:31 06/23/20 17:31 06/23/20 17:31 - Laboratory Results Result Diagrams: 06/23/20 18:09 06/23/20 18:09 Laboratory Results Interpreted: 06/23/20 06/23/20 06/23/20 18:09 18:09 19:34 Plt Count 148 L [place] % (Auto) 13.6 H Sodium 136.0 L Chloride 95 L Carbon Dioxide 32 H Glucose 327 H POC Glucose 287 H Critical Laboratory Results Reviewed: No Critical Results - Radiology Results Critical Radiology Results Reviewed: No Critical Results - EKG Interpretation by Me Additional EKG results interpreted by me: 06/23/20 Rate 94 Rhythm sinus Interpretation: No STEMI, no ST changes, no T wave inversions, normal axis with no LVH and there is no significant difference from prior on April 07, 2020 Discharge - Discharge Clinical Impression: Hyperglycemia, COVID-19, Cough Condition: Stable Disposition: HOME, SELF-CARE Additional Instructions: Today he tested positive for COVID-19. Please use inhaler as well as cough medicine for symptomatic relief. Monitor your symptoms closely. Please return if you have worsening shortness of breath, chest pain, passing out, any other symptoms. Your blood sugar was 327 today. You were given insulin. Please continue take your Janumet. Follow-up with your primary care in 10 days. You will need to quarantine for 10 days while you have COVID-19. Prescriptions: Benzonatate [Tessalon Perles 100 mg Capsule] 100 mg PO Q8HP PRN #40 capsule PRN Reason: Albuterol Sulfate [Albuterol Sulfate Hfa] 2 puff IH Q4H #1 [id number] Referrals: JOSE DANIEL WOLFE MD [Primary Care Provider] - 07/05/20
[2020-06-23 18:42] LABS: ALBUMIN 4.4 g/dL (3.5-5.0); ALKALINE PHOSPHATASE 95 U/L (38-126); ANION GAP 9 (5-19); ASPARTATE AMINO TRANSFERASE 34 U/L (17-59); BILIRUBIN,DIRECT 0.2 mg/dL (0.0-0.4); BILIRUBIN,TOTAL 0.8 mg/dL (0.2-1.3); BLOOD UREA NITROGEN 16 mg/dL (7-20); CALCIUM 9.5 mg/dL (8.4-10.2); CARBON DIOXIDE 32 mmol/L (22-30); CHLORIDE 95 mmol/L (98-107); GLUCOSE 327 mg/dL (75-110); POTASSIUM 4.2 mmol/L (3.6-5.0); TOTAL PROTEIN 7.4 g/dL (6.3-8.2)
[2020-06-23] MEDS ORDERED: INSULIN REG, HUMAN 100 UNIT/ML 3 ML VIAL (PYX) SUBCUT ONE (18:49)
--- NOTE | 2020-06-23 19:16 | RADIOLOGY REPORT (SQ) ---
EXAM DESCRIPTION: CHEST SINGLE VIEW IMAGES COMPLETED DATE/TIME: 06/23/2020 6:41 pm REASON FOR STUDY: cough, chest discomfort COMPARISON: 04/07/2020 EXAM PARAMETERS: NUMBER OF VIEWS: One view. TECHNIQUE: Single frontal radiographic view of the chest acquired. RADIATION DOSE: NA LIMITATIONS: None. FINDINGS: LUNGS AND PLEURA: No opacities, masses or pneumothorax. No pleural effusion. MEDIASTINUM AND HILAR STRUCTURES: No masses. Contour normal. HEART AND VASCULAR STRUCTURES: Heart normal in size. Normal vasculature. BONES: No acute findings. HARDWARE: None in the chest. OTHER: No other significant finding. IMPRESSION: NO ACUTE RADIOGRAPHIC FINDING IN THE CHEST. TECHNICAL DOCUMENTATION: JOB ID: [id number] 2010 [employer]- All Rights Reserved Reading location - IP/workstation name: [email or web address]
[2020-06-23 20:09] VITALS: BP 141/81
--- NOTE | 2020-06-24 17:23 | EKG REPORT ---
SEVERITY:- NORMAL ECG - SINUS RHYTHM : Confirmed by: April Ac MD 24-Jun-2020 17:22:17
== END 2020-06-23 20:09 | disposition home or self-care (01) ==
LOC: ER 17:10
DX: U07.1 COVID-19 (principal); R05 Cough; E11.9 Type 2 diabetes mellitus without complications; F17.200 Nicotine dependence, unspecified, uncomplicated
CPT/HCPCS: 93005; 94640; 99285; 36415; 82962; 85025; 80053; 84484; 71045; 93010; J7613

== ENCOUNTER 2020-07-10 20:59 | Emergency (ER) | payer OTHER ==
[2020-07-10 21:32] VITALS: BP 153/92
--- NOTE | 2020-07-10 21:42 | ER Document Report ---
ED Medical Screen (RME) - General Chief Complaint: Palpitations Stated Complaint: HEART PALPATATION Primary Care Provider: JOSE DANIEL WOLFE MD [Primary Care Provider] - Follow up as needed TRAVEL OUTSIDE OF THE [place] IN LAST 30 DAYS: No - HPI Notes: 07/10/20 21:38 Rapid Medical Exam HPI: 49-year-old male presents to the ER complaining of palpitations that began today. Patient says he has a history of having intermittent palpitations but today he is having them every 10 to 15 minutes which is much more common than usual. Patient says he has been worked up in the past for this with stress testing, tilt testing, etc. with all negative results. Patient says his roommate and are at home with active Covid. Patient says he had a rapid Covid test on June 23 that was positive and he is mostly been asymptomatic since. No history of ACS. Denies shortness of breath, fevers, abdominal pain, nausea vomiting. Patient does have increased life stressors at home. He also reports that one of his roommates from [employer] recently so he was drinking their leftover Mountain Dew 0 which does have 68 mg of caffeine. He he is unsure if this is more than his usual caffeine intake daily. Physical Exam: GENERAL: Well-appearing, well-nourished and in no acute distress. HEAD: Atraumatic, normocephalic. ENT: Moist mucous membranes. RESP: Respirations even and unlabored CV- Regular rate. NEURO: No focal neurological deficits. Moves all extremities spontaneously and on command. My involvement in this patients care was limited to a rapid initial assessment. A comprehensive ED assessment and evaluation of the patient, analysis of test results, treatment, and completion of the medical decision making process will be performed by other ER providers. - Related Data Allergies/Adverse Reactions: No Known Allergies Allergy (Verified 06/23/20 17:34) Past Medical History Endocrine Medical History: Reports: Hx Diabetes Mellitus Type 2 Renal/ Medical History: Denies: Hx Peritoneal Dialysis Psychiatric Medical History: Reports: Hx Bipolar Disorder Past Surgical History: Reports: Hx Abdominal Surgery - hernia repair, Hx Cholecystectomy Physical Exam - Vital signs Vitals: Temp Pulse BP Pulse Ox 98.1 F 95 153/92 H 99 07/10/20 21:30 07/10/20 21:30 07/10/20 21:30 07/10/20 21:30 Course - Vital Signs Vital signs: Temp Pulse Resp BP Pulse Ox 98.1 F 95 153/92 H 99 07/10/20 21:30 07/10/20 21:30 07/10/20 21:30 07/10/20 21:30 Doctor's Discharge - Discharge Referrals: JOSE DANIEL WOLFE MD [Primary Care Provider] - Follow up as needed
--- NOTE | 2020-07-10 23:08 | RADIOLOGY REPORT (SQ) ---
EXAM DESCRIPTION: Site: CHEST 2 VIEWS RP: XR CHEST 2 VIEWS Views: 2 CLINICAL HISTORY: 49 years Male; heart palpitations; COMPARISON: 06/23/2020 FINDINGS: Lungs: Lungs are clear, with no focal infiltrate, pneumothorax, or pleural effusion. Mediastinum: Mediastinum is within normal limits for this positioning. Bones: Bony structures are unremarkable. Right upper quadrant surgical clips are noted. IMPRESSION: 1. No acute cardiothoracic abnormality.
[2020-07-10 23:45] LABS: ABSOLUTE EOSINOPHILS # (AUTO) 0.1 10^3/uL (0.0-0.6); ABSOLUTE LYMPHOCYTES (AUTO) 2.2 10^3/uL (0.5-4.7); ABSOLUTE MONOCYTES (AUTO) 0.7 10^3/uL (0.1-1.4); ABSOLUTE NEUT (AUTO) 4.7 10^3/uL (1.7-8.2); BASOPHILS % (AUTO) 0.5 % (0-2); EOSINOPHILS % (AUTO) 1.3 % (0-6); HEMATOCRIT 40.2 % (37.9-51.0); HEMOGLOBIN 14.3 g/dL (13.5-17.0); LYMPHOCYTES % (AUTO) 28.7 % (13-45); MEAN CORPUSCULAR HEMOGLOBIN 30.6 pg (27.0-33.4); MEAN CORPUSCULAR HGB CONC 35.6 g/dL (32.0-36.0); MEAN CORPUSCULAR VOLUME 86 fl (80-97); MONOCYTES % (AUTO) 8.7 % (3-13); PLATELET COUNT 210 10^3/uL (150-450); RED BLOOD COUNT 4.66 10^6/uL (4.35-5.55); RED CELL DISTRIBUTION WIDTH 13.1 % (11.5-14.0); SEGMENTED NEUTROPHILS % (AUTO) 60.8 % (42-78); TOTAL CELLS COUNTED % (AUTO) 100 %; WHITE BLOOD COUNT 7.7 10^3/uL (4.0-10.5)
[2020-07-10 23:53] LABS: ALBUMIN 4.2 g/dL (3.5-5.0); ALKALINE PHOSPHATASE 77 U/L (38-126); ANION GAP 6 (5-19); ASPARTATE AMINO TRANSFERASE 39 U/L (17-59); BILIRUBIN,DIRECT 0.2 mg/dL (0.0-0.4); BILIRUBIN,TOTAL 0.7 mg/dL (0.2-1.3); BLOOD UREA NITROGEN 16 mg/dL (7-20); CALCIUM 9.5 mg/dL (8.4-10.2); CARBON DIOXIDE 31 mmol/L (22-30); CHLORIDE 101 mmol/L (98-107); GLUCOSE 273 mg/dL (75-110); POTASSIUM 4.3 mmol/L (3.6-5.0); TOTAL PROTEIN 7.1 g/dL (6.3-8.2)
== END 2020-07-11 03:07 | disposition left against medical advice (07) ==
LOC: ER 20:59
DX: R00.2 Palpitations (principal); E11.9 Type 2 diabetes mellitus without complications; Z63.8 Other specified problems related to primary support group; Z20.822 Contact with and (suspected) exposure to COVID-19; Z53.20 Procedure and treatment not carried out because of patient's decision for unspecified reasons
CPT/HCPCS: 36415; 71046; 80053; 84484; 85025; 99281

== ENCOUNTER 2020-08-02 12:17 | Emergency (ER) | payer OTHER ==
--- NOTE | 2020-08-02 12:48 | ER Document Report ---
ED Medical Screen (RME) - General Chief Complaint: Palpitations Stated Complaint: HEART PALPITATIONS,HEARTBURN Time Seen by Provider: 08/02/20 12:44 Primary Care Provider: JOSE DANIEL WOLFE MD [Primary Care Provider] - Follow up as needed TRAVEL OUTSIDE OF THE [place] IN LAST 30 DAYS: No - HPI Notes: 08/02/20 12:46 49-year-old male presents to ED for evaluation of increasing palpitations over the last several months. Patient reports he has had several bouts in the last few days. Patient reports he feels like he is being hit in the chest. He denies cough or cold symptoms. He was positive for Covid over 1-1/2 months ago. Denies fever or chills. States he also gets burning sensations from the epigastrium up into his throat. Reports it is worse when he lays flat. Patient states he does not feel associated dyspnea. Notes that he had his gallbladder out in 2006. - Related Data Allergies/Adverse Reactions: No Known Allergies Allergy (Verified 06/23/20 17:34) Past Medical History Endocrine Medical History: Reports: Hx Diabetes Mellitus Type 2 Renal/ Medical History: Denies: Hx Peritoneal Dialysis Psychiatric Medical History: Reports: Hx Bipolar Disorder Past Surgical History: Reports: Hx Abdominal Surgery - hernia repair, Hx Cholecystectomy Physical Exam - Vital signs Vitals: Temp Pulse Resp BP Pulse Ox 97.9 F 94 20 174/88 H 100 08/02/20 12:30 08/02/20 12:30 08/02/20 12:30 08/02/20 12:30 08/02/20 12:30 General: No acute distress. Alert and oriented x3. Sitting comfortably in a stretcher. Skin: No jaundice, pallor, petechiae, or rashes. Warm and dry. Heart: Regular rate and rhythm. S1,S2. No murmurs, rubs, or gallops. Lungs: Clear to auscultation bilaterally. No wheezes, rhonchi, rales. Equal ches t expansion. No retractions. Abdomen: Soft, pain with deep palpation of the epigastrum, nondistended. No masses. No CVA tenderness bilaterally. Back: No midline spinal TTP. No paraspinous muscular TTP. Neuro: GCS 15. Moving all extremities without discomfort. Psych: Mood and affect appropriate. 08/02/20 12:05 Course - Vital Signs Vital signs: Temp Pulse Resp BP Pulse Ox 97.9 F 94 20 174/88 H 100 08/02/20 12:30 08/02/20 12:30 08/02/20 12:30 08/02/20 12:30 08/02/20 12:30 Doctor's Discharge - Discharge Referrals: JOSE DANIEL WOLFE MD [Primary Care Provider] - Follow up as needed
[2020-08-02 13:22] LABS: ABSOLUTE EOSINOPHILS # (AUTO) 0.1 10^3/uL (0.0-0.6); ABSOLUTE LYMPHOCYTES (AUTO) 1.5 10^3/uL (0.5-4.7); ABSOLUTE MONOCYTES (AUTO) 0.5 10^3/uL (0.1-1.4); ABSOLUTE NEUT (AUTO) 4.8 10^3/uL (1.7-8.2); HEMOGLOBIN 15.1 g/dL (13.5-17.0); RED CELL DISTRIBUTION WIDTH 13.4 % (11.5-14.0); TOTAL CELLS COUNTED % (AUTO) 100 %; WHITE BLOOD COUNT 6.9 10^3/uL (4.0-10.5)
--- NOTE | 2020-08-02 13:26 | RADIOLOGY REPORT (SQ) ---
EXAM DESCRIPTION: CHEST SINGLE VIEW IMAGES COMPLETED DATE/TIME: 08/02/2020 12:55 pm REASON FOR STUDY: chest pain COMPARISON: 07/10/2020 EXAM PARAMETERS: NUMBER OF VIEWS: One view. TECHNIQUE: Single frontal radiographic view of the chest acquired. RADIATION DOSE: NA LIMITATIONS: None. FINDINGS: LUNGS AND PLEURA: No opacities, masses or pneumothorax. No pleural effusion. MEDIASTINUM AND HILAR STRUCTURES: No masses. Contour normal. HEART AND VASCULAR STRUCTURES: Heart normal in size. Normal vasculature. BONES: No acute findings. HARDWARE: None in the chest. OTHER: No other significant finding. IMPRESSION: NO ACUTE RADIOGRAPHIC FINDING IN THE CHEST. TECHNICAL DOCUMENTATION: JOB ID: [id number] 2010 [employer]- All Rights Reserved Reading location - IP/workstation name: [email or web address]
[2020-08-02 13:34] LABS: BASOPHILS % (AUTO) 0.6 % (0-2); EOSINOPHILS % (AUTO) 1.1 % (0-6); HEMATOCRIT 43.5 % (37.9-51.0); LYMPHOCYTES % (AUTO) 21.3 % (13-45); MEAN CORPUSCULAR HGB CONC 34.8 g/dL (32.0-36.0); MEAN CORPUSCULAR VOLUME 86 fl (80-97); MONOCYTES % (AUTO) 7.2 % (3-13); PLATELET COUNT 194 10^3/uL (150-450); RED BLOOD COUNT 5.05 10^6/uL (4.35-5.55); SEGMENTED NEUTROPHILS % (AUTO) 69.8 % (42-78)
[2020-08-02 13:40] LABS: ALBUMIN 4.7 g/dL (3.5-5.0); ALKALINE PHOSPHATASE 115 U/L (38-126); ANION GAP 8 (5-19); ASPARTATE AMINO TRANSFERASE 27 U/L (17-59); BILIRUBIN,DIRECT 0.1 mg/dL (0.0-0.4); BILIRUBIN,TOTAL 1.1 mg/dL (0.2-1.3); BLOOD UREA NITROGEN 17 mg/dL (7-20); CALCIUM 11.1 mg/dL (8.4-10.2); CARBON DIOXIDE 32 mmol/L (22-30); CHLORIDE 99 mmol/L (98-107); CREATINE KINASE 77 U/L (55-170); GLUCOSE 313 mg/dL (75-110); POTASSIUM 4.5 mmol/L (3.6-5.0); TOTAL PROTEIN 7.9 g/dL (6.3-8.2)
[2020-08-02 13:51] LABS: CREATINE KINASE MB 1.57 ng/mL (<4.55)
[2020-08-02 13:53] LABS: TROPONIN I < 0.012 ng/mL
[2020-08-02] MEDS ORDERED: NORMAL SALINE 1000 ML 1,000 ML IV ONE (14:40)
--- NOTE | 2020-08-02 14:42 | ER Document Report ---
ED Cardiac - General Chief Complaint: Palpitations Stated Complaint: HEART PALPITATIONS,HEARTBURN Time Seen by Provider: 08/02/20 12:44 Primary Care Provider: JOSE DANIEL WOLFE MD [HONORARY] - Follow up as needed Notes: HPI: 49-year-old male with past medical history as recorded including diabetes and palpitations since 2000 who presents today stating some increased palpitations over the last 6 months. He denies any chest pain, calf pain or leg swelling, fevers, recent trips or travel, or any other acute events. Patient had a long discussion with me regarding multiple new stressors in his life. He denies any suicidal homicidal ideations. He denies any recent trips or travel. ROS: See HPI All other review of systems reviewed and otherwise negative Reviewed vital signs and nursing note as charted by RN. PHYSICAL EXAM: CONSTITUTIONAL: Alert and oriented and responds appropriately to questions. Well -appearing; well-nourished HEAD: Normocephalic; atraumatic EYES: PERRL; Conjunctivae clear, sclerae non-icteric NECK: Supple without meningismus; non-tender; no cervical lymphadenopathy, no palpable thyromegaly CARD: Regular rate and rhythm; no murmurs; symmetric distal pulses RESP: Normal chest excursion without splinting or tachypnea; breath sounds clear and equal bilaterally ABD/GI: Normal bowel sounds; non-distended; soft, non-tender BACK: The back appears normal and is non-tender to palpation EXT: Normal ROM in all joints; non-tender to palpation; no edema SKIN: No acute lesions noted NEURO: CN 2-12 intact; 5/5 bilateral upper and lower extremity strength with sensation intact to light touch PSYCH: The patient's mood and manner are appropriate. Grooming and personal hygiene are appropriate. TRAVEL OUTSIDE OF THE [place] IN LAST 30 DAYS: No - Related Data Allergies/Adverse Reactions: No Known Allergies Allergy (Verified 06/23/20 17:34) Home Medications: Janumet, Abilify, Hydroxyzine Past Medical History - Social History Smoking Status: Unknown if Ever Smoked Family History: Reviewed & Not Pertinent Endocrine Medical History: Reports: Hx Diabetes Mellitus Type 2 Renal/ Medical History: Denies: Hx Peritoneal Dialysis Psychiatric Medical History: Reports: Hx Bipolar Disorder Past Surgical History: Reports: Hx Abdominal Surgery - hernia repair, Hx Cholecystectomy Physical Exam - Vital signs Vitals: Temp Pulse Resp BP Pulse Ox 97.9 F 94 20 174/88 H 100 08/02/20 12:30 08/02/20 12:30 08/02/20 12:30 08/02/20 12:30 08/02/20 12:30 Course - Re-evaluation Re-evalutation: Given the history and physical examination in this well-appearing male in no acute distress who is extraordinarily chatty with an unremarkable EKG, no thyromegaly, chest pain, calf pain or leg swelling, increased stress in his life with some increasing palpitations, no shortness of breath, no history of PE/DVT, I do believe ACS, PE, dissection to be extremely unlikely. I will obtain basic labs and electrolytes as well as a blood glucose level and a TSH. EKG shows heart of 96, normal sinus rhythm, normal axis, no ST elevation or depression. 08/02/20 14:42 Labs initially as recorded. Patient is very calm and cooperative in no acute distress. 08/02/20 16:03 Imaging and labs as recorded. Vital signs are stable. No chest pain or palpitations at this time. Patient will be discharged home with strict return precautions and follow-up with the primary care physician for further evaluation and treatment. - Vital Signs Vital signs: Temp Pulse Resp BP Pulse Ox 97.9 F 94 20 174/88 H 100 08/02/20 12:30 08/02/20 12:30 08/02/20 12:30 08/02/20 12:30 08/02/20 12:30 - Laboratory Results Result Diagrams: 08/02/20 12:58 08/02/20 12:58 Laboratory Results Interpreted: 08/02/20 12:58 Carbon Dioxide 32 H Glucose 313 H Calcium 11.1 H Critical Laboratory Results Reviewed: No Critical Results - Radiology Results Critical Radiology Results Reviewed: No Critical Results Discharge - Discharge Clinical Impression: Palpitations, Hyperglycemia Condition: Good Disposition: HOME, SELF-CARE Additional Instructions: Come back immediately for any worsening palpitations, chest pain, leg swelling, fever, shortness of breath, or any other acute problems. Please make sure that you stay away from caffeinated beverages, sweets, and take your medications as recorded and follow-up with the primary care physician. Referrals: JOSE DANIEL WOLFE MD [HONORARY] - Follow up as needed
[2020-08-02 16:09] VITALS: BP 135/88
--- NOTE | 2020-08-02 17:37 | EKG REPORT ---
SEVERITY:- NORMAL ECG - SINUS RHYTHM : Confirmed by: Iggy Kearney MD 02-Aug-2020 17:37:06
== END 2020-08-02 16:44 | disposition home or self-care (01) ==
LOC: ER 12:17
DX: R00.2 Palpitations (principal); E11.65 Type 2 diabetes mellitus with hyperglycemia; R12 Heartburn; Z86.16 Personal history of COVID-19; Z90.49 Acquired absence of other specified parts of digestive tract
CPT/HCPCS: 93005; 99285; 96360; 36415; 82553; 82550; 83690; 84443; 85025; 80053; 84484; 71045; 93010; J7030